=== PATIENT | male | born 1945 | race Caucasian/White ===

== ENCOUNTER 2018-10-12 19:07 | Inpatient (IN) | payer MEDICARE ==
[2018-10-12 19:59] LABS: INR-International Normal Ratio 1.2; Prothrombin Time 15.3 SEC (12.0-14.7)
[2018-10-12 20:00] LABS: PTT 34.3 SEC (22.9-36.1)
[2018-10-12 20:08] LABS: Anion Gap 20 mmol/L (10-20); BUN (Urea Nitrogen) 39 mg/dL (8.4-25.7); Calc. Creatinine Clearance 0 mL/min (70-130); Calcium 9.4 mg/dL (7.8-10.44); Carbon Dioxide 27 mmol/L (23-31); Chloride 96 mmol/L (98-107); Estimated GFR-MDRD 7; Glucose 79 mg/dL (83-110); Sodium 138 mmol/L (136-145)
[2018-10-12] MEDS ORDERED: Calcium Carbonate 500 MG ChewTAB PO PRN (20:10)
[2018-10-12] MEDS ORDERED: Senokot S 8.6-50 MG TAB PO PRN (20:10)
--- NOTE | 2018-10-12 21:50 | HP ---
Greg Sosa dictating for Dr. Pipe Smith. This is a 30-minute initial patient evaluation in with greater than 50% of the exam spent in counseli ng and coordinating patient's care. Remainder of the exam was spent in review of medical records and appropriate imaging studies. CHIEF COMPLAINT: Status post fall with left subdural hematoma. HISTORY OF PRESENT ILLNESS: Mr. Oliveros is a pleasant 73-year-old male who presents as a transfer from [facility] with the above complaints. Apparently, the patient sustained a fall ye sterday of which exact events are unclear to him. He states he does not remember striking his head o r his neck. He is on 81 mg aspirin, although he states he does not know why. He has end-stage renal disease and is on peritoneal dialysis. He has no known cardiac disease, stents or history of cerebr ovascular accident. Review of patient's head CT from [facility] shows a left subdu ral hematoma collection with a roughly 2 mm midline shift, slight amount of mass effect. There does not appear to be any hydrocephalus. The patient is not complaining of neck or headache at this time. The patient does note, however, a fall roughly 3 weeks ago as he does have some balance difficultie s and states he did fall into his neck. However, at this time, he does not complain of any neck pain . PHYSICAL EXAMINATION: The patient is awake, alert, and appropriate. GCS currently is 15. He follow s commands equally in all 4 extremities. He does have erythema in the left lower extremity consisten t with a probable cellulitis. He has missing a toenail on the right. He otherwise has no pronator d rift. He has no dysmetria. He states he is legally blind, but appears to have decent vision on conf rontation testing. He also is able to correctly identify a pen and state its purpose. His pupils ar e equal, round, and reactive bilaterally. Patient has no worrisome tenderness to palpation in the ce rvical spine. DIAGNOSIS: Status post fall with left subdural hematoma with minimal midline shift. PLAN: I have discussed the patient's case and imaging with Dr. Smith. At this time, the patient is neurologically intact. Therefore, he does not require neurosurgical intervention, but we will watch him very closely in the ICU. Hospitalist team will be involved in regards to the patient's end-stag e renal disease as well as cellulitis. He has got some antibiotics in the emergency room. Would lik e every one hour neuro checks if systolic blood pressure remains less than 150. We will hold his asp irin. Head of bed will be elevated at 30 degrees. He may eat now, but I would like to make him n.p. o. at midnight. Please call with any changes in patient's neurologic status. Otherwise, he does not require neurosurgical intervention at this time as he is neurologically stable.
[2018-10-12 23:29] VITALS: BMI 33.7
[2018-10-13] MEDS ORDERED: [UNRECOGNIZED DRUG - REMARK] FS SCH (00:30)
[2018-10-13] MEDS: Sodium Chloride 0.9% 1,000 ML IV SCH ×2 (02:09→20:44)
[2018-10-13] MEDS ORDERED: Doxycycline 100 MG CAP PO SCH (12:00)
--- NOTE | 2018-10-13 15:38 | PDOC.PN ---
- Subjective Encounter Start Date: 10/13/18 Encounter Start Time: 11:00 Pt seen for management of medical comorbidities including hypertension. - Objective Resuscitation Status: Resuscitation Status FULL:Full Resuscitation Vital Signs & Weight: Vital Signs (12 hours) Temp Pulse Pulse Pulse Resp BP BP 10/13/18 14:49 97.9 F 70 16 10/13/18 13:40 71 73 147/67 H 124/56 L 10/13/18 08:00 98.0 F 10/13/18 04:00 98.8 F BP Pulse Ox Pulse Ox Pulse Ox 10/13/18 14:49 135/73 100 10/13/18 13:40 100 100 10/13/18 08:00 98 10/13/18 04:00 Weight Weight 235 lb 3.732 oz Most Recent Monitor Data Heart Rate from ECG 69 NIBP 147/67 NIBP BP-Mean 93 Respiration from ECG 21 SpO2 100 I&O: 10/12/18 10/13/18 10/14/18 06:59 06:59 06:59 Intake Total 65.5 Output Total 0 Balance 65.5 Result Diagrams: 10/12/18 19:42 Additional Labs: Accuchecks 10/13/18 10/12/18 11:34 19:24 POC Glucose 93 72 Phys Exam - Physical Examination Obese HEENT: moist MMs Neck: supple Respiratory: clear to auscultation bilateral Cardiovascular: RRR Gastrointestinal: soft Neurological: moves all 4 limbs Psychiatric: normal affect Deviation from normal: erythema over left knee Dx/Plan (1) HTN (hypertension) Code(s): I10 - ESSENTIAL (PRIMARY) HYPERTENSION Status: Chronic Comment: blood pressure is controlled. (2) Dyslipidemia Code(s): E78.5 - HYPERLIPIDEMIA, UNSPECIFIED Status: Chronic Comment: continue statin - Plan * . Unclear whether the lesion on left knee is cellulitis or bruise. Pt does not know if he fell on the knee. Will start empiric antibiotics. Review of Systems - Review of Systems Cardiovascular: negative: chest pain, palpitations, orthopnea, paroxysmal nocturnal dyspnea, edema, light headedness Gastrointestinal: negative: Nausea, Vomiting, Abdominal Pain, Diarrhea, Constipation, Melena, Hematochezia - Medications/Allergies Allergies/Adverse Reactions: Allergies Allergy/AdvReac Type Severity Reaction Status Date / Time No Known Allergies Allergy Unverified 10/12/18 20:31 Medications: Current Medications Acetaminophen (Tylenol) 650 mg PO Q4H PRN PRN Reason: Headache/Fever/Mild Pain (1-3) Calcium Carbonate (Tums) 1,000 mg PO Q4H PRN PRN Reason: Heartburn or Indigestion Doxycycline Hyclate (Vibramycin) 100 mg PO BID KRISTEN Sodium Chloride (Normal Saline 0.9%) 1,000 mls @ 30 mls/hr IV .Q24H [facility] Last Admin: 10/13/18 02:09 Dose: 1,000 mls Labetalol HCl (Normodyne) 10 mg SLOW IVP Q10MIN PRN PRN Reason: SBP GREATER THAN 160 Hold All Aspirin/ (Blood Thinners) 1 each FS ONE [facility] Stop: 10/27/18 00:31 Ondansetron HCl (Zofran) 4 mg IVP Q6H PRN PRN Reason: Nausea/Vomiting Senna/Docusate Sodium (Senokot S) 2 tab PO BIDPRN PRN PRN Reason: Constipation Sodium Chloride (Flush - Normal Saline) 10 ml IVF PRN PRN PRN Reason: Saline Flush
--- NOTE | 2018-10-13 16:10 | CT ---
PRELIMINARY REPORT/[facility]/EMERGENTY AFTER-HOURS PROCEDURE Addendum created by Baldomero Richter MD on 10/13/2018 6:48 AM Central Time ([place] & [place]) THIS REPORT CONT AINS FINDINGS THAT MAY BE CRITICAL TO PATIENT CARE. The findings were verbally communicated via telep henna conference with YAHAIRA NICK at 6:48 AM ASSOCIATE PROFESSOR OF MUSIC on 10/13/2018. The findings were acknowledged and understood. Addendum created by Baldomero Richter MD on 10/13/2018 6:23 AM Central Time ([place] & [place]) As per technologist, comparison images are at an outside facility and are not available. Initial Report created on 10/13/2018 6:03 AM Central Time ([place] & [place]) CT Head Without Intravenous Contrast EXAM DATE/TIME: 10/13/2018 4:55 AM CLINICAL HISTORY: 73 years old, male; Signs and symptoms; Altered mental status/memory loss; Confusion or disorientatio n; Patient HX: L sdh, fell couple days ago, AMS TECHNIQUE: Axial computed tomography images of the head/brain without intravenous contrast. COMPARISON: No relevant prior studies available. FINDINGS: Brain: There is a LEFT frontoparietal convexity acute subdural hematoma measuring approximately 11 x 1.5 cm. Midline shift: There is no significant midline shift. Ventricles: Normal. No ventriculomegaly. Bones/joints: Normal. No acute fracture. Sinuses: Normal as visualized. No acute sinusitis. Mastoid air cells: Normal as visualized. No mastoid effusion. Soft tissues: Normal. IMPRESSION: There is a LEFT frontoparietal convexity acute subdural hematoma measuring approximately 11 x 1.5 cm. Comparison with prior imaging (not currently available) is advised. Thank you for allowing us to participate in the care of your patient. Dictated and Authenticated by: Baldomero Richter MD 10/13/2018 6:03 AM Central Time ([place] & [place]) FINAL REPORT BRAIN CT WITHOUT IV CONTRAST: EMERGENT AFTER HOURS EXAM TIME: 4:56 a.m. DATE: 10/13/2018. FINDINGS: Large left frontal and temporal subdural hematoma. There appears to be a probable very slight, 1-2 m m midline shift to the right. No evidence for other acute intraparenchymal process. Sinuses and mas toids are clear. IMPRESSION: Agree with [facility]. POS: [facility]
--- NOTE | 2018-10-13 17:42 | PRG ---
DATE OF SERVICE: 10/13/2018 This is a 30-minute initial hospital visit note in which 30 minutes were spent in review of the imagi ng record, evaluation and examination of patient, and formulation of plan. Greater than 50% of the t yaritza was spent in counseling on Mr. Lalit Oliveros. Mr. Oliveros is a very pleasant 73-year-old gentleman, admitted with baseline visual deficits otherwise has been neurologically intact. He was found to have a left-sided just over 1 cm acute subdural kimber chey with mild mass effect and midline shift. The patient does have end-stage renal failure and is o n renal dialysis. He was noted to have had a fall couple weeks ago and then another fall recently. Obviously, I suspect the left-sided acute subdural hematoma is related. It is stable on repeat head CT. I have discussed his care with our nephrology colleagues and we will [facility] the [facility] 2[facility]4 weeks with a repeat head CT. Should he develop any evidence of a persisten ce of the subdural hematoma as on occasion these can liquefy, we will plan for potential melody hole ev acuation, although obviously at this point, he is neurologically intact and it is not necessary to pu rsue that given his clinical excellence.
[2018-10-13] MEDS ORDERED: Dextrose 50% Abboject 50 ML SYRINGE IVP PRN (17:48)
[2018-10-13] MEDS ORDERED: Dextrose 5% in Water 1,000 ML IV PRN (17:48)
[2018-10-13] MEDS: HumaLOG 300 UNITS/3 ML VIAL SC PRN (18:12)
--- NOTE | 2018-10-13 20:32 | CON ---
DATE OF CONSULTATION: 10/13/2018 REASON FOR CONSULTATION: End-stage renal disease, on maintenance hemodialysis. HISTORY OF PRESENT ILLNESS: This is a very pleasant 73-year-old gentleman who presented for possible subdural hematoma. The patient did have dialysis Sunday, , and Sunday and had dial ysis yesterday. The patient denied no headache, numbness, tingling or weakness. Denies any nausea, vomiting or chest pain. The patient has a left subdural hematoma for which has been evaluated at thi s time. PAST MEDICAL HISTORY: Significant for end-stage renal disease, diabetes mellitus, hypertension, foot ulcers, carotid plaque, history of CABG, cholecystectomy, AV fistula, tunneled dialysis catheter. SOCIAL HISTORY: No alcohol. FAMILY HISTORY: Negative ESRD. ALLERGIES: Reviewed. HOME MEDICATIONS: List reviewed. REVIEW OF SYSTEMS: A 15-point review of systems was performed and negative except positives noted ab ove. General: Weakness- Head: Headache- Neck: No swelling or lumps. Nose: No epistaxis or dis charge. Eyes: No diplopia or pain. Respiratory: Dyspnea- Cardiovascular: Chest pain- Gastrointe stinal: Nausea- /BEHAVIORAL SCIENTIST: Hematuria- Musculoskeletal: No joint pain. Neuropsychiatic Systems: No s uicidal ideation. No ideation. Skin: Denies any rash or ulcer. Constitutional: No fever or chill s. PHYSICAL EXAMINATION: GENERAL: Patient is awake, alert. VITAL SIGNS: Afebrile, pulse 68, breathing 16, blood pressure . OBJECTIVE: See above. Awake, alert, in no acute distress. GENERAL APPEARANCE AND MENTAL STATUS: Fair. HEAD/NECK: Normocephalic. Atraumatic. EYES: EOMI. No deformity. EARS: Clear. No ulcers. NOSE: Intact. No lesions. MOUTH: Clear. No discharge. THROAT: Clear. No exudate. LUNGS: Clear. No crackles. CARDIAC: S1, S2. No rub. ABDOMEN: Benign. BS+. GENITALIA/RECTUM: Werner absent. BACK/EXTREMITIES: Edema 0+ Ulcer- NEUROLOGICAL: Alert and motor intact. SKIN: Rash- Bruise- LYMPHATICS: Edema- Ulcer- LABORATORY DATA: Potassium was 5.0. ASSESSMENT AND RECOMMENDATIONS: 1. Stage 6 chronic kidney disease. We will plan hemodialysis per schedule. We will recheck labs. 1. Hypertension, stable. 2. Anemia, stable. 3. Medication based on glomerular filtration rate are appropriate.
[2018-10-13] MEDS: Doxycycline 100 MG CAP PO SCH (20:44)
--- NOTE | 2018-10-13 20:57 | CON ---
DATE OF CONSULTATION: 10/13/2018 HISTORY OF PRESENT ILLNESS: Mr. Oliveros is a 73-year-old male. He has undergone coronary artery bypass grafting this year at [facility]. His director of conservation is in [place]. He was transferred from [facility] with parenchymal brain hemorrhage. This is small. He actually is in no distress and he was sitting in his chair at the bedside when I evaluated him. PAST MEDICAL HISTORY: Remarkable for recent coronary bypass grafting. He has never been hospitalized here before. FAMILY HISTORY: Negative for lung disease at an early age. SOCIAL HISTORY: Non contributory. REVIEW OF SYSTEMS: 10 point review of systems completed, otherwise negative. PHYSICAL EXAMINATION: GENERAL: On exam, he has been weaned off Cardene. VITAL SIGNS: Blood pressure 131/60, heart rate 69, respiratory rate is 29. HEENT: Pupils are equal. Sclerae is anicteric. NECK: Supple. LUNGS: Clear. HEART: Regular rhythm. ABDOMEN: Soft and nontender. EXTREMITIES: Without clubbing, cyanosis, or edema. IMPRESSION: Subdural hematoma. It is not anticipated, he will need neurosurgical intervention. Antibiotics were started for some lower extremity erythema. The dialysis patient will be dialyzed while he is in the hospital here. It would not be unreasonable for any transfer out of the Critical Care Unit to the stroke unit for observation. This is a 70 minute consult, with greater than 50% of time spent on unit in coordination of care. MORGNA
[2018-10-13] MEDS ORDERED: rOPINIRole HCl 2 MG TAB PO SCH (21:45)
[2018-10-14 09:23] LABS: Anion Gap 26 mmol/L (10-20); BUN (Urea Nitrogen) 68 mg/dL (8.4-25.7); Calc. Creatinine Clearance 10 mL/min (70-130); Calcium 8.6 mg/dL (7.8-10.44); Carbon Dioxide 20 mmol/L (23-31); Chloride 94 mmol/L (98-107); Estimated GFR-MDRD 5; Glucose 170 mg/dL (83-110); Potassium 5.8 mmol/L (3.5-5.1); Sodium 134 mmol/L (136-145)
[2018-10-14] MEDS: Doxycycline 100 MG CAP PO SCH ×2 (09:37→20:22)
--- NOTE | 2018-10-14 10:39 | PRG ---
Patient Name: DOMINICK BURNS Date of service: 10/14/2018 Subjective: Patient was seen and examined at bedside and overnight events noted. Patient denies any shortness of breath or chest pain or palpitation. No history of nausea or vomiting or diarrhea or fever or chills or cramps. Objective: General: This is a well-built male in no apparent distress. Vital signs: Temperature 98.9, pulse 73, respiratory rate 18, blood pressure 129/66. HEENT: Atraumatic, normocephalic. Oral mucosa is moist. Neck: Supple. Cardiovascular: S1 S2 heard. Rate and rhythm regular. Respiratory: Clear to auscultation. Gastrointestinal: Abdomen is soft. Musculoskeletal: No tenderness. No edema. Dermatologic: No skin rash. Neurologic: Alert and awake and oriented X3. No focal neurologic deficits. Moving all the extremities. Psychiatric: Mood and affect normal. LABORATORY DATA: Potassium is 5.8, BUN 68, creatinine is 10.5. ASSESSMENT AND PLAN: 1. End-stage renal disease. We will plan for 2 hours of dialysis. 2. Hyperkalemia. Limit potassium intake. 3. Anemia 4. Metabolic acidosis. 5. Hypertension, stable. 6. Edema. Plan is to have 2 hours of hemodialysis today and then continue dialysis Sunday , , and Sunday. Limit potassium intake. We will follow. MTDD
[2018-10-14] MEDS: HumaLOG 300 UNITS/3 ML VIAL SC PRN (13:23)
--- NOTE | 2018-10-14 14:37 | PDOC.PN ---
- Subjective Encounter Start Date: 10/14/18 Encounter Start Time: 07:00 Pt seen for followup re: cellulitis. Appears confused, slow to respond to questions. - Objective Resuscitation Status: Resuscitation Status FULL:Full Resuscitation Vital Signs & Weight: Vital Signs (12 hours) Temp Pulse Pulse Pulse Resp BP BP 10/14/18 13:31 10/14/18 11:54 99.1 F 74 20 10/14/18 09:33 10/14/18 08:47 80 81 121/49 L 156/77 H 10/14/18 08:00 10/14/18 07:38 99.9 F H 73 18 10/14/18 04:00 98.6 F 85 20 BP Pulse Ox 10/14/18 13:31 118/64 10/14/18 11:54 168/77 H 97 10/14/18 09:33 129/66 10/14/18 08:47 10/14/18 08:00 98 10/14/18 07:38 168/87 H 98 10/14/18 04:00 137/62 93 L Weight Weight 235 lb 3.732 oz Most Recent Monitor Data Heart Rate from ECG 69 NIBP 147/67 NIBP BP-Mean 93 Respiration from ECG 21 SpO2 100 I&O: 10/13/18 10/14/18 10/15/18 06:59 06:59 06:59 Intake Total 65.5 240 Output Total 0 Balance 65.5 240 Result Diagrams: 10/14/18 08:50 Additional Labs: Accuchecks 10/14/18 10/13/18 10/13/18 05:35 20:42 17:14 POC Glucose 107 135 H 163 H Phys Exam - Physical Examination HEENT: moist MMs Neck: supple Respiratory: clear to auscultation bilateral Cardiovascular: RRR Gastrointestinal: soft Neurological: moves all 4 limbs Psychiatric: normal affect Deviation from normal: left knee cellulitis Dx/Plan (1) Cellulitis Code(s): L03.90 - CELLULITIS, UNSPECIFIED Status: Acute Comment: continue doxycycline (2) Acute encephalopathy Code(s): G93.40 - ENCEPHALOPATHY, UNSPECIFIED Status: Acute Comment: repeat CT brain to evaluate (3) HTN (hypertension) Code(s): I10 - ESSENTIAL (PRIMARY) HYPERTENSION Status: Chronic Comment: blood pressure is controlled. (4) Dyslipidemia Code(s): E78.5 - HYPERLIPIDEMIA, UNSPECIFIED Status: Chronic Comment: continue statin - Plan * . Review of Systems - Review of Systems Cardiovascular: negative: chest pain, palpitations, orthopnea, paroxysmal nocturnal dyspnea, edema, light headedness Gastrointestinal: negative: Nausea, Vomiting, Abdominal Pain, Diarrhea, Constipation, Melena, Hematochezia - Medications/Allergies Allergies/Adverse Reactions: Allergies Allergy/AdvReac Type Severity Reaction Status Date / Time No Known Allergies Allergy Unverified 10/12/18 20:31 Medications: Current Medications Acetaminophen (Tylenol) 650 mg PO Q4H PRN PRN Reason: Headache/Fever/Mild Pain (1-3) Calcium Carbonate (Tums) 1,000 mg PO Q4H PRN PRN Reason: Heartburn or Indigestion Dextrose/Water (Dextrose 50%) 25 gm IVP PRN PRN PRN Reason: HYPOGLYCEMIA PROTOCOL Doxycycline Hyclate (Vibramycin) 100 mg PO BID [facility] Last Admin: 10/14/18 09:37 Dose: 100 mg Glucagon (Glucagon) 1 mg IM PRN PRN PRN Reason: HYPOGLYCEMIA PROTOCOL Sodium Chloride (Normal Saline 0.9%) 1,000 mls @ 30 mls/hr IV .Q24H [facility] Last Admin: 10/13/18 20:44 Dose: 1,000 mls Dextrose/Water (D5w) 1,000 mls @ 0 mls/hr IV INF PRN PRN Reason: HYPOGLYCEMIA PROTOCOL Insulin Human Lispro (Humalog) 0 units SC .MILD SLIDING SCALE PRN; Protocol PRN Reason: MILD SLIDING SCALE Last Admin: 10/14/18 13:23 Dose: 2 unit Labetalol HCl (Normodyne) 10 mg SLOW IVP Q10MIN PRN PRN Reason: SBP GREATER THAN 160 Hold All Aspirin/ (Blood Thinners) 1 each FS ONE [facility] Stop: 10/27/18 00:31 Ondansetron HCl (Zofran) 4 mg IVP Q6H PRN PRN Reason: Nausea/Vomiting Ropinirole HCl (Requip) 2 mg PO HS [facility] Senna/Docusate Sodium (Senokot S) 2 tab PO BIDPRN PRN PRN Reason: Constipation Sodium Chloride (Flush - Normal Saline) 10 ml IVF PRN PRN PRN Reason: Saline Flush
--- NOTE | 2018-10-14 15:20 | CT ---
HEAD CT WITHOUT CONTRAST: HISTORY: New-onset confusion. Followup hematoma. COMPARISON: 10/13/2018. FINDINGS: Calvarium is intact. Adequate aeration of the sinuses and mastoid air cells. Cavernous carotid athe rosclerosis is noted. Redemonstration of a left frontal, temporal, and parietal subdural hematoma. Minimal interval increa se in size of the diameter approximately 1.4 cm at the level of the sylvian fissure. There is persis tent mass effect upon the left cerebrum. There is evidence of sulcal effacement. No significant mid line shift. Basilar cisterns are patent. There is persistent preservation of cortical pulido-white ma tter differentiation in the right cerebrum. IMPRESSION: 1. Minimal increase in size of a left-sided subdural hematoma. 2. No significant midline shift. POS: [facility]
--- NOTE | 2018-10-14 15:22 | PQF ---
I do not have this patient at this time. Sorry I was away last threee days. DOMINICK BURNS DAVID [id number] [facility]-A09 [id number] CLINICAL DOCUMENTATION IMPROVEMENT CLARIFICATION FORM: ICD-10 Updated PLEASE DO AN ADDENDUM TO THE PROGRESS NOTE WITH ANY DOCUMENTATION UPDATES OR ADDITIONS AND CARRY THROUGH TO DC SUMMARY. THANK YOU. DATE: 10-14-18 ATTN: DR. SANDERSON Please exercise your independent, professional judgment in responding to the clarification form. Clinical indicators are provided on the bottom of this form for your review Please check appropriate box(s): [ ] Encephalopathy: Type: [ ] Acute [ ] Subacute [ ] Chronic Etiology: [ ] Hypertensive [ ] Metabolic [ ] Unspecified [ ] Other (please specify) [ ] Transient Alteration of Awareness [ ] Other diagnosis [ ] Unable to determine In addition, please specify: Present on Admission (POA): [ ] Yes [ ] No [ ] Unable to determine For continuity of documentation, please document condition throughout progress notes and discharge summary. Thank You. CLINICAL INDICATORS - SIGNS / SYMPTOMS / LABS 10-14 (MARIA E): * APPEARS CONFUSED - SLOW TO RESPOND TO QUESTIONS * ACUTE ENCEPHALOPATHY - REPEAT CT BRAIN TO EVALUATE 10-14 (JAMSHID): METABOLIC ACIDOSIS; ESRD RISK FACTORS: 10-12 (PARK) * LEFT SUBDURAL HEMATOMA W/ MIDLINE SHIFT * AWAKE/ALERT AND APPROPRIATE - GCS CURRENTLY 15 10-14 (MARIA E): * HTN - BLD PRESSURE IS CONTROLLED * LLE CELLULITIS - CONTINUE DOXYCYCLINE TREATMENTS: 10-[address] BRAIN MAR: IVF - NS 10-12 DOXYCYCLINE PO 10-13 THANK YOU, ZURI (This form is maintained as a part of the permanent medical record) 2015 [employer]. All Rights Reserved Zuri Cano RN, BS [email or web address] Cell [facility] HOSPITALChelsey
--- NOTE | 2018-10-14 15:41 | PQF ---
DOMINICK BURNS MORGAN, PA-C [id number] CLINICAL DOCUMENTATION IMPROVEMENT CLARIFICATION FORM: ICD-10 Updated PLEASE DO AN ADDENDUM TO THE PROGRESS NOTE WITH ANY DOCUMENTATION UPDATES OR ADDITIONS AND CARRY THROUGH TO DC SUMMARY. THANK YOU. DATE: 10-14-18 ATTN: YAHAIRA NICK PA-C Please exercise your independent, professional judgment in responding to the clarification form. Clinical indicators are provided on the bottom of this form for your review Please check appropriate box(s): [ ] Cerebral edema / Vasogenic edema [ ] Compression of brain [ ] Other diagnosis [ ] Unable to determine In addition, please specify: Present on Admission (POA): [ ] Yes [ ] No [ ] Unable to determine For continuity of documentation, please document condition throughout progress notes and discharge summary. Thank You. CLINICAL INDICATORS - SIGNS / SYMPTOMS / LABS H&P (PARK): * CT FROM [facility] SHOWS A LEFT SUBDURAL HEMATOMA COLLECTION W/ ROUGHLY 2MM MIDLINE SHIFT, SLIGHT AMOUNT OF MASS EFFECT * LEFT SUBDURAL HEMATOMA W/ MINIMAL MIDLINE SHIFT 10-13 CT BRAIN: LARGE LEFT FRONTAL AND TEMPORAL SUBDURAL HEMATOMA. VERY SLIGHT 1-2 mm MIDLINE SHIFT TO RIGHT. 10-14 (MARIA E): APPEARS CONFUSED - ACUTE ENCEPHALOPATHY - WILL REPEAT CT OF BRAIN RISK FACTORS 10-12 (PARK) * S/P FALL W/ LEFT SUBDURAL HEMATOMA W/ MINIMAL MIDLINE SHIFT 10-13 (MARIA E) * HX HTN TREATMENTS: CPOE: CT BRAIN 10-12 - NEURO CHECKS MAR: IVF NS 10-12 DOXYCYCLINE PO 10-13 THANK YOU, ZURI (This form is maintained as a part of the permanent medical record) 2015 [employer]. All Rights Reserved Zuri Cano RN, BS [email or web address] Cell [facility]
[2018-10-14] MEDS: rOPINIRole HCl 2 MG TAB PO SCH (20:22)
[2018-10-14] MEDS: Sodium Chloride 0.9% 1,000 ML IV SCH (20:33)
[2018-10-14] MEDS: Acetaminophen 325 MG TAB PO PRN (20:44)
[2018-10-14] MEDS: Labetalol HCl 100 MG/20 ML VIAL SLOW IVP PRN (20:45)
[2018-10-15] MEDS: Labetalol HCl 100 MG/20 ML VIAL SLOW IVP PRN (00:16)
--- NOTE | 2018-10-15 10:03 | PRG ---
Patient Name: DOMINICK BURNS Date of service: 10/15/2018 Subjective: Patient was seen and examined at bedside and overnight events noted. Patient denies any shortness of breath or chest pain or palpitation. No history of nausea or vomiting or diarrhea or fever or chills or cramps. Objective: General: This is a well-built male in no apparent distress. Vital signs: Temperature 97.6, pulse 73, respiratory rate 18, blood pressure 134/64. HEENT: Atraumatic, normocephalic. Oral mucosa is moist. Neck: Supple. Cardiovascular: S1 S2 heard. Rate and rhythm regular. Respiratory: Clear to auscultation. Gastrointestinal: Abdomen is soft. Musculoskeletal: No tenderness. No edema. Dermatologic: No skin rash. Neurologic: Alert and awake and oriented X3. No focal neurologic deficits. Moving all the extremit ies. Psychiatric: Mood and affect normal. LABORATORY DATA: Not done today. ASSESSMENT AND PLAN: 1. End-stage renal disease, have dialysis. 2. Hyperkalemia. Limit potassium intake. Will have dialysis. 3. Metabolic acidosis. 4. Hypertension. 5. Anemia. 6. Edema. Plan is to continue on dialysis as tolerated Sunday, and Sunday.
[2018-10-15 13:35] LABS: #Lymphocytes 1.3 thou/uL (1.20-3.40); #Monocytes 0.8 thou/uL (0.11-0.59); #Neutrophils 8.9 thou/uL (1.40-6.50); %Basophils 0.1 % (0.0-1.0); %Eosinophils 0.4 % (0.0-10.0); %Lymphocytes 12.2 % (21.0-51.0); %Monocytes 6.8 % (0.0-10.0); %Neutrophils 80.5 % (42.0-75.0); Hemoglobin 12.2 g/dL (14.0-18.0); Mean Corpuscular HGB CONC 32.4 g/dL (32.0-36.0); Mean Corpuscular Hemoglobin 31.4 pg (27.0-31.0); Mean Corpuscular Volume 96.8 fL (78.0-98.0); Mean Platelet Volume 6.8 fL (7.4-10.4); Platelet Count 243 thou/uL (130-400); RBC Distribution Width 17.5 % (11.5-14.5)
[2018-10-15 14:00] LABS: ALT (SGPT) 16 U/L (8-55); AST (SGOT) 20 U/L (5-34); Albumin 3.6 g/dL (3.4-4.8); Alkaline Phosphatase 138 U/L (40-150); Anion Gap 18 mmol/L (10-20); BUN (Urea Nitrogen) 18 mg/dL (8.4-25.7); Bilirubin, Total 1.7 mg/dL (0.2-1.2); Calc. Creatinine Clearance 26 mL/min (70-130); Calcium 9.3 mg/dL (7.8-10.44); Carbon Dioxide 27 mmol/L (23-31); Chloride 95 mmol/L (98-107); Estimated GFR-MDRD 15; Globulin 4.1 g/dL (2.4-3.5); Glucose 120 mg/dL (83-110); Potassium 3.5 mmol/L (3.5-5.1); Protein, Total 7.7 g/dL (5.8-8.1); Sodium 136 mmol/L (136-145)
[2018-10-15] MEDS: Doxycycline 100 MG CAP PO SCH ×2 (14:00→22:11)
--- NOTE | 2018-10-15 14:39 | PDOC.PN ---
- Subjective Encounter Start Date: 10/15/18 Encounter Start Time: 14:37 Moans and grimaces frequently, but says he is not having any pain. - Objective Resuscitation Status: 10/15/18 12:07 Resuscitation Status Routine Resuscitation Status: FULL: Full Resuscitation Discussed with: Per Previous order Vital Signs & Weight: Vital Signs (12 hours) Temp Pulse Resp BP Pulse Ox 10/15/18 08:05 94 L 10/15/18 08:00 97.6 F 76 18 134/64 94 L 10/15/18 05:12 99.1 F 68 18 149/71 H 97 Weight Admit Weight 235 lb 3.732 oz Weight 235 lb 3.732 oz Most Recent Monitor Data Heart Rate from ECG 69 NIBP 147/67 NIBP BP-Mean 93 Respiration from ECG 21 SpO2 100 I&O: 10/14/18 10/15/18 10/16/18 06:59 06:59 06:59 Intake Total 818 Output Total 1500 Balance -682 Result Diagrams: 10/15/18 13:21 10/15/18 13:21 Additional Labs: Accuchecks 10/15/18 10/14/18 10/14/18 05:24 23:18 18:46 POC Glucose 100 147 H 122 H 10/14/18 11:03 POC Glucose 194 H Phys Exam - Physical Examination Looks to be in pain at times, but denies. Respiratory: no wheezing, no rales, no rhonchi Cardiovascular: RRR, no significant murmur Gastrointestinal: soft, non-tender, no distention Musculoskeletal: no edema Neurological: non-focal Deviation from normal: Encephalopathic. Dx/Plan (1) Contusion of left knee Code(s): S80.02XA - CONTUSION OF LEFT KNEE, INITIAL ENCOUNTER Status: Acute (2) Acute encephalopathy Code(s): G93.40 - ENCEPHALOPATHY, UNSPECIFIED Status: Acute Comment: repeat CT brain to evaluate (3) Dyslipidemia Code(s): E78.5 - HYPERLIPIDEMIA, UNSPECIFIED Status: Chronic Comment: continue statin (4) HTN (hypertension) Code(s): I10 - ESSENTIAL (PRIMARY) HYPERTENSION Status: Chronic Comment: blood pressure is controlled. (5) Subdural hematoma Code(s): S06.5X9A - TRAUM SUBDR HEM W LOC OF UNSP DURATION, INIT Status: Acute - Plan * No surgical intervention intended by neurosurg. * Left knee definitely appears to be contusion with bruising and not cellulitis. * Encephalpathy is persistent. Etiology unclear. Mild leukocytosis. Awaiting CXR and UA results. Consult Neurology.
--- NOTE | 2018-10-15 18:49 | RAD ---
FRONTAL VIEW CHEST: Indication: Encephalopathy. FINDINGS: Cardiac silhouette is enlarged with pulmonary vascular prominence. There are patchy alveolar opacitie s and interstitial prominence of each lung. Prior sternotomy noted. There is extensive artifact limit ing detail. IMPRESSION: Findings most consistent with decompensated CHF. Correlate clinically, and if necessary, imaging foll ow up may be obtained. POS: [facility]
--- NOTE | 2018-10-15 20:19 | CT ---
HEAD CT WITHOUT CONTRAST: 10/15/18 COMPARISON: 10/14/18 HISTORY: Re-evaluate hematoma, encephalopathy. TECHNIQUE: Axial CT imaging at 5 mm intervals from vertex through skull base without contrast. FINDINGS: Imaged paranasal sinuses/mastoid air cells well aerated. No displaced calvarial fracture is evident. There is a subdural hematoma on the left. This left subdural hematoma measures up to 1.4 cm in transv erse dimension in the left frontal region, stable. There is a component along the anterior and latera l aspect of the middle cranial fossa on the left, which is stable. There are posterior components in the left parietal and occipital regions, which appear stable as well. Left to right midline shift at the level of the septum pellucidum is minimal, measuring in the 2 mm r dinesh. No new hemorrhage. IMPRESSION: Grossly unchanged hemispheric left subdural hematoma with minimal left to right midline shift measuri ng in the 2 mm range. POS: [facility]
--- NOTE | 2018-10-15 21:37 | CON ---
DATE OF CONSULTATION: 10/15/2018 CONSULTING PHYSICIAN: Hospitalist Service. IMPRESSION: Apparent acute neurologic change what appears to be receptive aphasia. His exam is otherwise nonfocal. His EGD did not show any ongoing subclinical seizure activity. PLAN: 1. Ammonia level, cortisol level, and T4. 2. Repeat CT scan of the brain. HISTORY OF PRESENT ILLNESS: Mr. Oliveros is a 73-year-old gentleman, who was admitted after discovery of subdural hematoma. He was seen by Neurosurgery yesterday and reportedly was intact. He had about a 1 cm fairly extensive left hemispheric subdural hematoma, which appeared to be acute. They did not feel it was necessary to operate on at that point. Apparently, he has become a bit more agitated and not able to communicate in appropriate fashion. His vital signs have been stable and he has been in afebrile. PAST MEDICAL HISTORY: Otherwise only notable for some recent head trauma and renal failure requiring hemodialysis. ALLERGIES: NONE REPORTED. SOCIAL HISTORY: Unknown. FAMILY HISTORY: Unknown. REVIEW OF SYSTEMS: Not obtainable due to his inability to communicate effectively. PHYSICAL EXAMINATION: GENERAL: He is a well-nourished elderly man, lying in bed, in no acute distress. VITAL SIGNS: Stable. He is afebrile. HEENT: Pupils are equal and reactive. Conjunctivae clear. Oropharynx clear. NECK: Supple. EXTREMITIES: No cyanosis, clubbing, or edema. NEUROLOGIC: Appeared to be awake, but just continually repeated "I don't know," could not get him to follow commands in an appropriate fashion except when prompted by physical cueing. His cranial nerve exam did not show any asymmetry. Motor exam showed good antigravity strength bilaterally. There was no asterixis present. Gait was not tested. Sensation was symmetric to touch. Plantar response was downgoing on the left and equivocal on the right. SUMMARY: Elderly gentleman who has a large subdural hematoma on the left. 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 It does not appear to be secondary to subclinical seizures. Suspect that it is related to the subdural hematoma causing irritability of the left brain. Neurosurgery may need to be called back for reassessment. Job ID: [id number]
[2018-10-15] MEDS: Acetaminophen 325 MG TAB PO PRN (22:11)
[2018-10-15] MEDS: rOPINIRole HCl 2 MG TAB PO SCH (22:11)
[2018-10-15] MEDS: Lorazepam 2 MG/ML VIAL SLOW IVP PRN (23:09)
[2018-10-15 23:10] LABS: Bilirubin Negative (Negative); Blood, Urine Trace (Negative); Clarity CLEAR (Clear); Glucose, Urine (Dipstick) 100 mg/dL (Negative); Leukocyte Negative (Negative); Nitrite Negative (Negative); Protein, Urine (Dipstick) 300 mg/dL (Neg-Trace); Specific Gravity, Urine 1.014 (1.002-1.036); Urobilinogen 0.2 mg/dL (0.2-1.0); pH, Urine 8.5 (5.0-9.0)
[2018-10-15 23:13] LABS: Bacteria/HPF None Seen HPF (None Seen); Hyaline Casts/LPF 0-3 HYALINE CAST LPF (0-3 Hyaline); RBC/HPF 0-3 HPF (0-3); Squamous Epithelial None Seen HPF (0-3); WBC/HPF 0-3 HPF (0-3)
[2018-10-16] MEDS: Ondansetron PF 4 MG/2 ML Vial IVP PRN (01:49)
[2018-10-16 06:22] LABS: #Eosinphils 0.1 thou/uL (0.0-0.7); #Lymphocytes 1.8 thou/uL (1.20-3.40); #Monocytes 0.9 thou/uL (0.11-0.59); #Neutrophils 5.7 thou/uL (1.40-6.50); %Basophils 0.3 % (0.0-1.0); %Eosinophils 1.1 % (0.0-10.0); %Lymphocytes 21.1 % (21.0-51.0); %Monocytes 10.5 % (0.0-10.0); Hemoglobin 11.8 g/dL (14.0-18.0); Mean Corpuscular HGB CONC 31.5 g/dL (32.0-36.0); Mean Corpuscular Hemoglobin 31.2 pg (27.0-31.0); Mean Corpuscular Volume 99.2 fL (78.0-98.0); Platelet Count 240 thou/uL (130-400); RBC Distribution Width 17.5 % (11.5-14.5); Red Blood Cell (RBC) Count 3.76 mill/uL (4.70-6.10); White Blood Cell (WBC) Count 8.5 thou/uL (4.8-10.8)
[2018-10-16 06:33] LABS: Anion Gap 18 mmol/L (10-20); BUN (Urea Nitrogen) 36 mg/dL (8.4-25.7); Calc. Creatinine Clearance 16 mL/min (70-130); Carbon Dioxide 27 mmol/L (23-31); Chloride 96 mmol/L (98-107); Estimated GFR-MDRD 8; Glucose 99 mg/dL (83-110); Potassium 4.4 mmol/L (3.5-5.1); Sodium 137 mmol/L (136-145)
[2018-10-16] MEDS: Acetaminophen 325 MG TAB PO PRN (11:35)
[2018-10-16] MEDS: Doxycycline 100 MG CAP PO SCH ×2 (11:35→20:16)
--- NOTE | 2018-10-16 11:42 | PRG ---
DATE OF SERVICE: 10/16/2018 DICTATED FOR: Pipe Smith MD This is a 10-minute subsequent patient evaluation in which greater than 50% of the exam was spent counseling and coordinating the patient's care, remainder of the exam was spent in reviewing the patient's medical records and formulation of treatment plan. Mr. Oliveros is now hospital day #4, having sustained acute on chronic left-sided subdural hematoma. The patient is showing signs of metabolic encephalopathy. Repeat head CT was performed yesterday that shows essential stability of the left-sided subdural fluid collection. The patient has end-stage renal disease and is on dialysis. At this time, it does not appear that there is any type of neurosurgical intervention as the patient's head CT is stable. We will continue to monitor him. He does continue with right-sided weakness, but does again appear stable on the last exam Neurosurgery had. Please call with any changes in the patient's neurological status, otherwise be planned to follow up with the patient outpatient in 2 weeks and all blood thinners must be held. Job ID: [id number]
--- NOTE | 2018-10-16 13:15 | PDOC.PN ---
- Subjective Encounter Start Date: 10/16/18 Encounter Start Time: 11:20 No complaints. Cannot remember his name or his 's name. - Objective Resuscitation Status - Order Detail: 10/15/18 12:07 Resuscitation Status Routine Resuscitation Status: FULL: Full Resuscitation Discussed with: Per Previous order Vital Signs & Weight: Vital Signs (12 hours) Temp Pulse Resp BP Pulse Ox 10/16/18 11:35 98.1 F 70 18 140/72 96 10/16/18 08:00 98.2 F 72 18 138/69 97 10/16/18 04:00 98.3 F 69 20 135/59 L 98 Weight Admit Weight 235 lb 3.732 oz Weight 235 lb 3.732 oz Most Recent Monitor Data Heart Rate from ECG 69 NIBP 147/67 NIBP BP-Mean 93 Respiration from ECG 21 SpO2 100 I&O: 10/15/18 10/16/18 10/17/18 06:59 06:59 06:59 Intake Total 818 344 Output Total 1500 2800 Balance -973 -7316 Result Diagrams: 10/16/18 05:36 10/16/18 05:36 Additional Labs: Accuchecks 10/16/18 10/16/18 10/15/18 10:39 06:02 21:04 POC Glucose 125 H 98 154 H 10/15/18 16:38 POC Glucose 114 H Phys Exam - Physical Examination Constitutional: NAD Respiratory: no wheezing, no rales, no rhonchi, clear to auscultation bilateral Cardiovascular: RRR, no significant murmur Gastrointestinal: soft, non-tender, no distention, positive bowel sounds Musculoskeletal: no edema Deviation from normal: Still has some cognitive impairment. Skin: normal turgor Dx/Plan (1) Acute encephalopathy Code(s): G93.40 - ENCEPHALOPATHY, UNSPECIFIED Status: Acute Comment: Repeat brain CT negative for new findings. Neuro eval indicates that the patient has receptive aphasia. Suspect there is an expressive component as well. (2) Contusion of left knee Code(s): S80.02XA - CONTUSION OF LEFT KNEE, INITIAL ENCOUNTER Status: Acute (3) Dyslipidemia Code(s): E78.5 - HYPERLIPIDEMIA, UNSPECIFIED Status: Chronic Comment: continue statin (4) HTN (hypertension) Code(s): I10 - ESSENTIAL (PRIMARY) HYPERTENSION Status: Chronic Comment: blood pressure is controlled. (5) Subdural hematoma Code(s): S06.5X9A - TRAUM SUBDR HEM W LOC OF UNSP DURATION, INIT Status: Acute Comment: Neurosurg has no further plans/eval. (6) ESRD (end stage renal disease) on dialysis Code(s): N18.6 - END STAGE RENAL DISEASE; Z99.2 - DEPENDENCE ON RENAL DIALYSIS Status: Acute - Plan * Patient is stable. He has some cognitive/phasic deficits. * OK for DC planning. May need rehab. * Continue HD per nephrology.
[2018-10-16] MEDS ORDERED: Lorazepam 2 MG/ML VIAL ONE (14:46)
[2018-10-16 14:53] LABS: Actual Bicarbonate (HCO3a) 14.9 mEq/L (22-28); Base Excess (BEa) -13.3 mEq/L (-2.0 to +3.0); Calcium, Ionized 1.18 mmol/L (1.12-1.30); Carboxyhemoglobin (COHb) 1.8 gm% (0.0-3.0); Hemoglobin (Hb) 13.9 g/dL (14.0-18.0); O2 Tension (PaO2) 243.8 mmHg (> 70.0); Potassium - ABG Lab 5.51 mmol/L (3.70-5.30)
[2018-10-16 14:54] LABS: pH, Arterial 7.16 (7.35-7.45)
[2018-10-16 14:55] LABS: Puncture Site RRA
[2018-10-16] MEDS ORDERED: levETIRAcetam In NaCl (Iso-Os) 1,000 MG in Premix Bag 1 BAG IVPB SCH (15:00)
[2018-10-16] MEDS ORDERED: Diltiazem HCl 125 MG, Admixture Fee 1 EACH in Sodium Chloride 0.9% 100 ML IVPB SCH (15:00)
--- NOTE | 2018-10-16 15:47 | RAD ---
PORTABLE CHEST 1 VIEW: Date: 10/16/18 Time: 1538 hours HISTORY: Respiratory failure. FINDINGS/IMPRESSION: Comparison made with exam of 10/15/18. There are changes of median sternotomy. The heart is enlarged. Mild bibasilar infiltrates are noted. No pneumothoraces or large effusions are seen. POS: [facility]
--- NOTE | 2018-10-16 15:59 | CT ---
BRAIN CT WITHOUT IV CONTRAST: HISTORY: A 73-year-old male with a history of seizure, Code Green. COMPARISON: 10/15/2018. FINDINGS: Again noted is a moderate to large left-sided subdural with several millimeters of midline shift to t he right, unchanged from 10/15/2018. No evidence for new hemorrhage. IMPRESSION: Stable left-sided subdural. Minimal midline shift to the right. No new hemorrhage or other new proc ess. Findings were discussed with Dr. Sohrt by phone at 3:15 p.m. CODE LIYA POS: [facility]
[2018-10-16] MEDS: Sodium Chloride 0.9% 1,000 ML IV SCH (17:05)
[2018-10-16] MEDS: HumaLOG 300 UNITS/3 ML VIAL SC PRN (17:08)
[2018-10-16] MEDS: Lorazepam 2 MG/ML VIAL SLOW IVP PRN ×2 (17:10→21:37)
[2018-10-16] MEDS ORDERED: Sodium Bicarb 50 MEQ/50 ML Abboject 8.4% SYRINGE ONE (18:00)
--- NOTE | 2018-10-16 19:26 | PRG ---
DATE OF SERVICE: 10/16/2018 SUBJECTIVE: Responded to a Code Green called on this patient this afternoon. The patient had apparently gotten up and gone into the shower when he had grand mal seizure. The patient was helped to the ground and did not fall. He subsequently was placed in a wheelchair, taken back to bed, then was in the Transition whenever I arrived in the room. The patient was unconscious. He was very tachypneic. He was slightly dusky. His lungs were clear, but he had a lot of upper tracheal rhonchi. He had tachycardia. The patient was subsequently placed on a monitor and heart rate was in the 170s. EKG confirmed atrial fibrillation with the rapid ventricular response. The patient's heart rate varied between 140s to low 200s and he was placed on oxygen and the nasal trumpet was placed. ABG was ordered. The patient had ordered for Cardizem once his blood pressure was established. His blood pressure peaked high as 213 systolic, 110s diastolic. Cardizem 20 mg bolus was ordered. However, before that arrived, the patient had another grand mal seizure. 2 mg of Ativan was given and 1000 mg of Keppra was initiated. Blood gas came back with pH of 7.16. Amp of bicarb was given. The patient subsequently converted to sinus rhythm with normal heart rate prior to any Cardizem being given. The patient's breathing eased after the bicarb was given. His blood pressure and heart rate were stable and he was subsequently taken urgently to CT in order to ensure no significant changes had occurred with his subdural hematoma. Then, the patient was transported to the ICU. I received a call from Radiology that there was no significant change in the bleed. I did discuss with Pulmonary Critical Care Dr. Mcmullen as the patient arrived into the ICU. Also I discussed the case with Dr. Anderson in the midst of the event and talked to Greg Sosa with the neurosurgery service just prior to receiving the results of the CT scan. The patient was coming awake and having fairly normal purposeful movements and appeared to be significantly improved. Other labs were obtained in the midst of this episode, but no results are back yet as of this time. I will follow up on those. Total critical care time was 45 minutes. Job ID: [id number] MTDD
--- NOTE | 2018-10-16 20:12 | EKG ---
Test Reason : CODE GREEN Blood Pressure : / mmHG Vent. Rate : 141 BPM Atrial Rate : 086 BPM P-R Int : 000 ms QRS Dur : 116 ms QT Int : 360 ms P-R-T Axes : 000 042 186 degrees QTc Int : 551 ms Atrial fibrillation with rapid ventricular response Possible Inferior infarct , age undetermined Marked ST abnormality, possible anterolateral subendocardial injury Abnormal ECG No previous ECGs available Confirmed by GURPREET MURRAY, SJaylon (4) on 10/16/2018 8:12:45 PM Referred By: JOCE Confirmed By:DR. Eren VÁZQUEZ MD
[2018-10-16] MEDS: rOPINIRole HCl 2 MG TAB PO SCH (20:17)
[2018-10-16] MEDS: Acetaminophen 1,000 MG in Premix Bag 1 BAG IVPB PRN (23:19)
[2018-10-16] MEDS: Haloperidol Lactate 5 MG/ML VIAL IM PRN (23:20)
[2018-10-17] MEDS: Labetalol HCl 100 MG/20 ML VIAL SLOW IVP PRN ×6 (00:59→16:08)
[2018-10-17] MEDS: Lorazepam 2 MG/ML VIAL SLOW IVP PRN ×2 (02:07→09:08)
[2018-10-17 05:04] LABS: #Basophils 0.1 thou/uL (0.0-0.2); #Lymphocytes 1.6 thou/uL (1.20-3.40); #Neutrophils 9.2 thou/uL (1.40-6.50); %Basophils 0.5 % (0.0-1.0); %Eosinophils 0.4 % (0.0-10.0); %Lymphocytes 13.6 % (21.0-51.0); %Monocytes 8.4 % (0.0-10.0); %Neutrophils 77.1 % (42.0-75.0); Hemoglobin 12.6 g/dL (14.0-18.0); Mean Corpuscular HGB CONC 31.4 g/dL (32.0-36.0); Mean Corpuscular Volume 98.5 fL (78.0-98.0); Mean Platelet Volume 7.1 fL (7.4-10.4); Platelet Count 334 thou/uL (130-400); RBC Distribution Width 17.4 % (11.5-14.5); Red Blood Cell (RBC) Count 4.06 mill/uL (4.70-6.10); White Blood Cell (WBC) Count 11.9 thou/uL (4.8-10.8)
[2018-10-17 05:26] LABS: Anion Gap 24 mmol/L (10-20); BUN (Urea Nitrogen) 55 mg/dL (8.4-25.7); Calc. Creatinine Clearance 12 mL/min (70-130); Calcium 9.1 mg/dL (7.8-10.44); Carbon Dioxide 23 mmol/L (23-31); Chloride 97 mmol/L (98-107); Estimated GFR-MDRD 6; Glucose 94 mg/dL (83-110); Potassium 4.4 mmol/L (3.5-5.1); Sodium 140 mmol/L (136-145)
[2018-10-17] MEDS: Acetaminophen 1,000 MG in Premix Bag 1 BAG IVPB PRN ×2 (05:29→16:08)
[2018-10-17] MEDS: Haloperidol Lactate 5 MG/ML VIAL IM PRN ×2 (06:37→13:38)
--- NOTE | 2018-10-17 08:46 | PDOC.PN ---
- Subjective Encounter Start Date: 10/17/18 Encounter Start Time: 08:43 Has had some post-ictal agitation. Required some ativan and haldol. Still verbal, but not coherent in speech. - Objective Resuscitation Status - Order Detail: 10/15/18 12:07 Resuscitation Status Routine Resuscitation Status: FULL: Full Resuscitation Discussed with: Per Previous order Vital Signs & Weight: Vital Signs (12 hours) Temp Pulse BP Pulse Ox 10/17/18 07:58 100 10/17/18 07:00 98.5 F 10/17/18 06:12 85 165/69 H 10/17/18 04:50 85 161/72 H 10/17/18 03:00 98.7 F 10/17/18 02:07 85 163/73 H 10/17/18 00:59 85 179/83 H 10/16/18 23:00 97.6 F Weight Admit Weight 235 lb 3.732 oz Weight 235 lb 3.732 oz Most Recent Monitor Data Heart Rate from ECG 68 NIBP 137/74 NIBP BP-Mean 95 Respiration from ECG 29 SpO2 100 I&O: 10/16/18 10/17/18 10/18/18 06:59 06:59 06:59 Intake Total 344 675 Output Total 2800 260 5 Balance -2456 415 -5 Result Diagrams: 10/17/18 04:20 10/17/18 04:20 Additional Labs: Accuchecks 10/17/18 10/16/18 10/16/18 05:33 21:23 16:42 POC Glucose 88 98 156 H 10/16/18 10/16/18 14:44 10:39 POC Glucose 148 H 125 H Phys Exam - Physical Examination Constitutional: NAD Modestly somnolent and agitated. Four point restraints. Respiratory: no wheezing, no rales, no rhonchi, clear to auscultation bilateral Cardiovascular: RRR, no significant murmur, no rub Gastrointestinal: soft, non-tender, no distention, positive bowel sounds Musculoskeletal: no edema Skin: normal turgor Dx/Plan (1) Seizure Code(s): R56.9 - UNSPECIFIED CONVULSIONS Status: Acute (2) Subdural hematoma Code(s): S06.5X9A - TRAUM SUBDR HEM W LOC OF UNSP DURATION, INIT Status: Acute Comment: Neurosurg has no further plans/eval. (3) Acute encephalopathy Code(s): G93.40 - ENCEPHALOPATHY, UNSPECIFIED Status: Acute Comment: Repeat brain CT negative for new findings. Neuro eval indicates that the patient has receptive aphasia. Suspect there is an expressive component as well. (4) Receptive aphasia Code(s): R47.01 - APHASIA Status: Acute (5) ESRD (end stage renal disease) on dialysis Code(s): N18.6 - END STAGE RENAL DISEASE; Z99.2 - DEPENDENCE ON RENAL DIALYSIS Status: Acute (6) Contusion of left knee Code(s): S80.02XA - CONTUSION OF LEFT KNEE, INITIAL ENCOUNTER Status: Acute (7) HTN (hypertension) Code(s): I10 - ESSENTIAL (PRIMARY) HYPERTENSION Status: Chronic Comment: blood pressure is controlled. (8) Dyslipidemia Code(s): E78.5 - HYPERLIPIDEMIA, UNSPECIFIED Status: Chronic Comment: continue statin - Plan * Seizure yesterday. Post-ictal and encephalopathic. PRN ativan and haldol. Restraints to allow for dialysis. * Neurosurg planning on evacuating hematoma at some point in the future. * Continue Keppra. Will change to IV given the encephalopathy. * Continue HD. * Discussed with patient's and daughter.
--- NOTE | 2018-10-17 08:49 | CON ---
DATE OF CONSULTATION: 10/16/2018 HISTORY OF PRESENT ILLNESS: A 73-year-old gentleman, who apparently was on the stroke unit, developed seizure activity, new onset. Became confused, lethargic, was taken to the CT scanner for repeat CT; showed stable subdural hematoma, which Neurosurgery says do not require evacuation. Respiratory called me on emergency basis, thought he needs to be intubated, he was encephalopathic with significant respiratory compromise. By the time he got up to the ICU from the CT scanner, he was slightly more responsive. He has a nasal airway. His oxygen saturation was 93%. He was placed on low-flow O2. He is postictal, encephalopathic. He also apparently had evidence of rapid supraventricular tachyarrhythmias. Apparently, he was given some Ativan and Keppra. He is now in the ICU. Stat chest x-ray has been ordered, is still pending. His blood gas did show significant acidosis. PHYSICAL EXAMINATION: VITAL SIGNS: His sats are now 92%, respiratory rate 20, pulse 93, and blood pressure 156/91. CHEST: Revealed decreased breath sounds. No wheezing. CARDIAC: Normal S1 and S2. No gallops. ABDOMEN: Soft. IMPRESSION: 1. Status post seizure activity. 2. Subdural hematoma, stable. Neurosurgery apparently singed off. 3. Cardiac arrhthymias. He is already on Keppra 1000 mg twice a day. He was given Ativan 2 mg earlier. He is probably lethargic from the Ativan. He is on Cardizem for his supraventricular tachycardias and antibiotics, supportive care. If he remains lethargic, may consider putting him on noninvasive ventilation. Otherwise, supportive care. We will notify Dr. Arreaga. Job ID: [id number]
[2018-10-17] MEDS ORDERED: levETIRAcetam 500 MG TAB PO SCH (09:00)
[2018-10-17] MEDS: Doxycycline 100 MG CAP PO SCH (10:41)
[2018-10-17] MEDS: Sodium Chloride 0.9% 1,000 ML IV SCH (13:44)
--- NOTE | 2018-10-17 16:34 | PRG ---
DATE OF SERVICE: 10/16/2018 SUBJECTIVE: Patient was seen and examined at bedside and overnight events noted. Patient denies any shortness of breath or chest pain or palpitation. No history of nausea or vomiting or diarrhea or fever or chills or cramps. OBJECTIVE: GENERAL: This is an elderly male, in no apparent distress. VITAL SIGNS: Temperature 98, blood pressure 140/72. HEENT: Atraumatic, normocephalic. Oral mucosa is moist NECK: Supple. CARDIOVASCULAR: S1, S2 heard. Rate and rhythm regular. RESPIRATORY: Clear to auscultation. GASTROINTESTINAL: Abdomen is soft. MUSCULOSKELETAL: No tenderness. No edema. DERMATOLOGIC: No skin rash. NEUROLOGIC: Alert and awake and oriented X3. No focal neurologic deficits. Moving all the extremities. PSYCHIATRIC: Mood and affect normal. LABORATORY DATA: Potassium is 4.4 BUN 36, creatinine 6.5. ASSESSMENT AND PLAN: 1. End-stage renal disease. Continue dialysis on Sunday, , and Sunday. 2. Hyperkalemia . 3. Metabolic acidosis. 4. Hypertension, monitor. 5. Altered mentation per Neurosurgery. PLAN: We will continue on dialysis Sunday, , and Sunday. Job ID: [id number]
[2018-10-17] MEDS: rOPINIRole HCl 2 MG TAB PO SCH (20:31)
--- NOTE | 2018-10-17 22:27 | PRG ---
DATE OF SERVICE: 10/17/2018 SUBJECTIVE: Mr. Oliveros was seen by my associate yesterday. Apparently, he had a seizure today followed by confusion. CT scanning shows stable subdural hematoma. He is unable to give a good history when he is seen today. Seizure medicines have been adjusted. OBJECTIVE: LUNGS: Clear. HEART: Regular rhythm. ABDOMEN: Soft. VITAL SIGNS: Have been stable. IMPRESSION: Subdural hematoma with seizure. He has been seen by Neurosurgery as well. We will continue with serial exams for now. Critical care time is 35 minutes. Job ID: [id number] MTDD
--- NOTE | 2018-10-18 00:28 | PRG ---
DATE OF SERVICE: 10/17/2018 SUBJECTIVE: Patient was seen and examined at bedside and overnight events noted. Patient denies any shortness of breath or chest pain or palpitation. No history of nausea or vomiting or diarrhea or fever or chills or cramps. OBJECTIVE: GENERAL: This is a well-built male in no apparent distress. VITAL SIGNS: Temperature 98.5. Pulse 68. Respiratory rate . Blood pressure 151/82. HEENT: Atraumatic, normocephalic. Oral mucosa is moist NECK: Supple. CARDIOVASCULAR: S1, S2 heard. Rate and rhythm regular. RESPIRATORY: Clear to auscultation. GASTROINTESTINAL: Abdomen is soft. MUSCULOSKELETAL: No tenderness. No edema. DERMATOLOGIC: No skin rash. NEUROLOGIC: The patient is confused. PSYCHIATRIC: Mood and affect normal. LABORATORY DATA: Potassium is 4.4, BUN is 55, creatinine is 8.0. ASSESSMENT AND PLAN: 1. End-stage renal disease. We will continue dialysis. The patient was . 2. Hyperkalemia, better. 3. Acidosis, stable. 4. Anemia, monitor hemoglobin. 5. Hypertension. 6. Edema, resolved. 7. Recommendation, per Neurosurgery and primary team. 8. Plan is to continue dialysis as tolerated. Will heparin with dialysis. Job ID: [id number]
[2018-10-18 08:30] LABS: #Basophils 0.1 thou/uL (0.0-0.2); #Eosinphils 0.1 thou/uL (0.0-0.7); #Lymphocytes 1.7 thou/uL (1.20-3.40); #Monocytes 0.7 thou/uL (0.11-0.59); #Neutrophils 6.9 thou/uL (1.40-6.50); %Basophils 0.8 % (0.0-1.0); %Eosinophils 1.5 % (0.0-10.0); %Monocytes 7.2 % (0.0-10.0); %Neutrophils 72.5 % (42.0-75.0); Hemoglobin 12.8 g/dL (14.0-18.0); Mean Corpuscular HGB CONC 32.1 g/dL (32.0-36.0); Mean Corpuscular Volume 99.9 fL (78.0-98.0); Mean Platelet Volume 6.9 fL (7.4-10.4); Platelet Count 367 thou/uL (130-400); RBC Distribution Width 17.3 % (11.5-14.5); Red Blood Cell (RBC) Count 3.98 mill/uL (4.70-6.10); White Blood Cell (WBC) Count 9.5 thou/uL (4.8-10.8)
[2018-10-18 08:50] LABS: ALT (SGPT) 19 U/L (8-55); AST (SGOT) 24 U/L (5-34); Albumin 3.2 g/dL (3.4-4.8); Alkaline Phosphatase 122 U/L (40-150); Anion Gap 20 mmol/L (10-20); BUN (Urea Nitrogen) 45 mg/dL (8.4-25.7); Bilirubin, Total 1.1 mg/dL (0.2-1.2); Calc. Creatinine Clearance 14 mL/min (70-130); Calcium 9.2 mg/dL (7.8-10.44); Carbon Dioxide 25 mmol/L (23-31); Chloride 100 mmol/L (98-107); Estimated GFR-MDRD 7; Globulin 3.9 g/dL (2.4-3.5); Glucose 89 mg/dL (83-110); Potassium 4.6 mmol/L (3.5-5.1); Protein, Total 7.1 g/dL (5.8-8.1); Sodium 140 mmol/L (136-145)
--- NOTE | 2018-10-18 10:05 | PQF ---
DOMINICK BURNS MORGAN, PA-C [id number] CLINICAL DOCUMENTATION IMPROVEMENT CLARIFICATION FORM: ICD-10 Updated PLEASE DO AN ADDENDUM TO THE PROGRESS NOTE WITH ANY DOCUMENTATION UPDATES OR ADDITIONS AND CARRY THROUGH TO DC SUMMARY. THANK YOU. DATE: 10-14-1810-22- ATTN: YAHAIRA NICK PA-C / DR. KEMP Please exercise your independent, professional judgment in responding to the clarification form. Clinical indicators are provided on the bottom of this form for your review Please check appropriate box(s): [ ] Cerebral edema / Vasogenic edema [ ] Compression of brain [ ] Other diagnosis [ ] Unable to determine In addition, please specify: Present on Admission (POA): [ ] Yes [ ] No [ ] Unable to determine For continuity of documentation, please document condition throughout progress notes and discharge summary. Thank You. CLINICAL INDICATORS - SIGNS / SYMPTOMS / LABS H&P ([facility]): * CT FROM [facility] SHOWS A LEFT SUBDURAL HEMATOMA COLLECTION W/ ROUGHLY 2MM MIDLINE SHIFT, SLIGHT AMOUNT OF MASS EFFECT * LEFT SUBDURAL HEMATOMA W/ MINIMAL MIDLINE SHIFT 10-13 CT BRAIN: LARGE LEFT FRONTAL AND TEMPORAL SUBDURAL HEMATOMA. VERY SLIGHT 1-2 mm MIDLINE SHIFT TO RIGHT. 10-14 ([facility] E): APPEARS CONFUSED - ACUTE ENCEPHALOPATHY - WILL REPEAT CT OF BRAIN RISK FACTORS 10-12 ([facility]) * S/P FALL W/ LEFT SUBDURAL HEMATOMA W/ MINIMAL MIDLINE SHIFT 10-13 ([facility] E) * HX HTN TREATMENTS: CPOE: CT BRAIN 10-12 - NEURO CHECKS MAR: IVF NS 10-12 DOXYCYCLINE PO 10-13 Thank you, Zuri (This form is maintained as a part of the permanent medical record) 2015 [employer]. All Rights Reserved Zuri Cano RN, BS [email or web address]
--- NOTE | 2018-10-18 11:33 | PRG ---
DATE OF SERVICE: 10/18/2018 SUBJECTIVE: The patient is more awake. He is alert. He is conversant. He denies any complaints. Does admit being overall hungry. OBJECTIVE: VITAL SIGNS: Temperature 97.5, pulse 61, BP 113/53, respirations 23, O2 sat 100% on room air. GENERAL APPEARANCE: Age-appropriate male. He is awake and alert. He is conversant and interactive and appropriate. He is not agitated. HEENT: No OP lesions. HEART: Regular rate and rhythm without murmurs. LUNGS: Clear bilaterally. ABDOMEN: Soft, nontender, and nondistended. EXTREMITIES: Warm and dry. NEUROLOGIC: The patient is appropriate. He is oriented to his name, his 's name. He is answering questions correctly and appropriately. He has normal behavior and affect. He has symmetric 5/5 strength in distal upper and lower extremities. LABORATORY DATA: White count is 9.5, hemoglobin 12.8, platelets 367. Sodium 140, potassium 4.6, CO2 of 25, BUN 45, creatinine 7.5, glucose 87 to 101. LFTs normal. Albumin 3.2. Urine cultures remained negative. IMPRESSION AND PLAN: 1. Left subdural hematoma. The patient initially had some receptive aphasia and some mild right-sided weakness and had a seizure associated with this as well. I talked to Neurosurgery yesterday at length about the situation. They anticipated possibly doing evacuation of the hematoma at some point in the future. However, given his improvement, that may be reconsidered. 2. Seizure. The patient had a couple of seizures a couple of days ago post subdural. He is still on Keppra and doing very well. He has had no subsequent seizures. 3. Acute encephalopathy, appears to be resolved. 4. Receptive aphasia, remarkably improved this morning. 5. End-stage renal disease, on dialysis. We will continue with the dialysis. 6. Contusion of the left knee, stable. 7. Hypertension, well controlled. 8. Dyslipidemia, well controlled. 9. Disposition. We will have Speech evaluate the patient, clear his swallow, and get him back on the diet. He has been in restraints because of some agitation, which appears to be resolved. We can likely discontinue this today and possibly move the patient out of the ICU. Job ID: [id number]
--- NOTE | 2018-10-18 16:10 | PRG ---
DATE OF SERVICE: 10/18/2018 REASON FOR NEUROLOGY FOLLOWUP: Neurologic change and seizure. SUBJECTIVE: This patient was admitted and had altered mental status. He also suffered left hemispheric subdural and Neurosurgery has seen him. He reportedly had a seizure. The description of the seizure is not known to me. Today, he has not been observed to have any seizures. He is on Keppra 500 mg q.12 hours and EEG that was done on 10/15/2018 reportedly did not show any seizure activity, but the formal report is not in a computer locative. Another EEG is pending for later today. The patient is awake and alert. He states that this is Sherman and that the year is 2018. He has difficulty telling me exactly where he was born, but he says that he was born in [place]. He denies any pain. He denies headache. He states that he does not remember hitting his head. He is awake and alert. Cranial nerves 2 through 12 are normal. Pupils are 2 mm and reactive. Motor, 5/5 strength. DTRs 2+. Toes downgoing. Sensation is normal. There is no tremor. There is no sign of jerking clinically at this time. OBJECTIVE: VITAL SIGNS: Show blood pressure of 135/54, respiratory rate 21, heart rate is 67, and O2 sat is 100. LUNGS: Clear. HEART: No murmurs. ABDOMEN: Not distended. EXTREMITIES: No edema. JOINTS: No swelling. REVIEW OF REPORTS: Showed that there was a CT of brain done on 10/13/2018, it showed a left frontoparietal subdural of 1.5 cm in width. There was a subsequent CT of the head on 10/15/2018 that was reported as showing a left subdural hematoma of 1.4 cm. There was also minimal nkkc-rr-wpupu shift of [address] of the brain done on 10/16/2018, that showed stable left-sided subdural, stable since 10/15/2018. Other labs; creatinine on 10/18/2018, was elevated at 7.50, and BUN was also elevated at 45. White count 9.5, hemoglobin 12.8, and hematocrit 39.8. There was an INR on 10/12/2018 of 1.2. Blood gas on 10/16/2018, showed a pH of 7.16, pCO2 of 43, and pO2 of 243.8. CURRENT MEDICATIONS: His current medications include Keppra, which he is on 500 mg IV twice a day. IMPRESSION: Left subdural hematoma, also seizure disorder. He does not appear to be having seizures at this time, possibly some of his confusion could be related to renal problems. PLAN: We will continue with his Keppra and we will get a followup EEG. Job ID: [id number]
[2018-10-18] MEDS: Sodium Chloride 0.9% 1,000 ML IV SCH (17:44)
[2018-10-18] MEDS: Haloperidol Lactate 5 MG/ML VIAL IM PRN (18:01)
[2018-10-18] MEDS: rOPINIRole HCl 2 MG TAB PO SCH (21:06)
[2018-10-19 04:06] LABS: #Basophils 0.1 thou/uL (0.0-0.2); #Eosinphils 0.2 thou/uL (0.0-0.7); #Lymphocytes 1.8 thou/uL (1.20-3.40); #Monocytes 0.7 thou/uL (0.11-0.59); #Neutrophils 6.9 thou/uL (1.40-6.50); %Basophils 0.7 % (0.0-1.0); %Eosinophils 1.8 % (0.0-10.0); %Lymphocytes 18.7 % (21.0-51.0); %Monocytes 7.3 % (0.0-10.0); %Neutrophils 71.6 % (42.0-75.0); Hemoglobin 12.5 g/dL (14.0-18.0); Mean Corpuscular HGB CONC 32.2 g/dL (32.0-36.0); Mean Corpuscular Hemoglobin 31.9 pg (27.0-31.0); Mean Corpuscular Volume 99.1 fL (78.0-98.0); Mean Platelet Volume 6.7 fL (7.4-10.4); Platelet Count 433 thou/uL (130-400); RBC Distribution Width 17.3 % (11.5-14.5); Red Blood Cell (RBC) Count 3.93 mill/uL (4.70-6.10); White Blood Cell (WBC) Count 9.7 thou/uL (4.8-10.8)
[2018-10-19 04:27] LABS: Albumin 3.3 g/dL (3.4-4.8)
[2018-10-19 04:29] LABS: Calcium 9.3 mg/dL (7.8-10.44); Chloride 103 mmol/L (98-107); Potassium 4.5 mmol/L (3.5-5.1); Sodium 143 mmol/L (136-145)
[2018-10-19 04:30] LABS: Globulin 3.8 g/dL (2.4-3.5); Glucose 88 mg/dL (83-110); Protein, Total 7.1 g/dL (5.8-8.1)
[2018-10-19 04:31] LABS: Carbon Dioxide 21 mmol/L (23-31)
[2018-10-19 04:32] LABS: Bilirubin, Total 1.1 mg/dL (0.2-1.2)
[2018-10-19 04:33] LABS: Alkaline Phosphatase 124 U/L (40-150); Calc. Creatinine Clearance 11 mL/min (70-130); Estimated GFR-MDRD 6
[2018-10-19 04:34] LABS: BUN (Urea Nitrogen) 58 mg/dL (8.4-25.7)
[2018-10-19 04:35] LABS: AST (SGOT) 24 U/L (5-34); Anion Gap 24 mmol/L (10-20)
[2018-10-19 04:36] LABS: ALT (SGPT) 18 U/L (8-55)
--- NOTE | 2018-10-19 09:45 | PRG ---
DATE OF SERVICE: 10/19/2018 SUBJECTIVE: The patient is up in the chair, doing fine, has no complaints, has not had any seizure activity in the last 2 days. OBJECTIVE: VITAL SIGNS: Temperature is 98.8, pulse 76, blood pressure 138/71, O2 sat 100%. HEENT: Unremarkable. NECK: No JVD. CHEST: Clear. CARDIAC: S1 and S2, regular. ABDOMEN: Soft. EXTREMITIES: No edema. LABORATORY DATA: Sodium 143, potassium 4.5, chloride 103, CO2 of 21, BUN 58, creatinine 9.2, and glucose 88. White blood cell count 9.7, hematocrit 38.9, and platelet count 433. ASSESSMENT: 1. Cerebrovascular accident. 2. Status post seizure. 3. Subdural hematoma. 4. Cardiac arrhythmias. 5. Chronic renal failure. PLAN: 1. The patient will continue dialysis. 2. Transfer back to the stroke floor for continued evaluation. 3. Continue anticonvulsants. Job ID: [id number]
--- NOTE | 2018-10-19 19:58 | PDOC.PN ---
- Subjective Encounter Start Date: 10/19/18 Encounter Start Time: 10:00 Says he is doing well. Denies complaints. Denies pain. - Objective Resuscitation Status - Order Detail: 10/15/18 12:07 Resuscitation Status Routine Resuscitation Status: FULL: Full Resuscitation Discussed with: Per Previous order Vital Signs & Weight: Vital Signs (12 hours) Temp Pulse Ox 10/19/18 11:00 98.1 F 10/19/18 08:00 100 Weight Admit Weight 235 lb 3.732 oz Weight 235 lb 3.732 oz Most Recent Monitor Data Heart Rate from ECG 73 NIBP 171/81 NIBP BP-Mean 111 Respiration from ECG 12 SpO2 100 I&O: 10/18/18 10/19/18 10/20/18 06:59 06:59 06:59 Intake Total 1018 1502 1031 Output Total 5 0 Balance 1013 1502 1031 Result Diagrams: 10/19/18 03:31 10/19/18 03:31 Additional Labs: Accuchecks 10/19/18 10/18/18 11:32 21:08 POC Glucose 112 H 85 Phys Exam - Physical Examination Constitutional: NAD Visual impairment Respiratory: no wheezing, no rales, no rhonchi, clear to auscultation bilateral Cardiovascular: RRR, no significant murmur Gastrointestinal: soft, non-tender, no distention, positive bowel sounds Musculoskeletal: no edema Psychiatric: normal affect, A&O x 3 Skin: normal turgor Dx/Plan (1) Seizure Code(s): R56.9 - UNSPECIFIED CONVULSIONS Status: Acute Comment: Skylar (2) Subdural hematoma Code(s): S06.5X9A - TRAUM SUBDR HEM W LOC OF UNSP DURATION, INIT Status: Acute Comment: Neurosurg has plans for future drainage. Giving time to allow brain to be less reactive after seizure and the clot to liquify Doing very well now. May change. (3) Acute encephalopathy Code(s): G93.40 - ENCEPHALOPATHY, UNSPECIFIED Status: Acute Comment: Repeat brain CT negative for new findings. Neuro eval indicates that the patient has receptive aphasia. Suspect there is an expressive component as well. (4) Receptive aphasia Code(s): R47.01 - APHASIA Status: Acute Comment: Much improved. Largely resolved. (5) ESRD (end stage renal disease) on dialysis Code(s): N18.6 - END STAGE RENAL DISEASE; Z99.2 - DEPENDENCE ON RENAL DIALYSIS Status: Acute Comment: Followed by Neprhology. On scheduled hemodialysis. (6) Contusion of left knee Code(s): S80.02XA - CONTUSION OF LEFT KNEE, INITIAL ENCOUNTER Status: Acute (7) HTN (hypertension) Code(s): I10 - ESSENTIAL (PRIMARY) HYPERTENSION Status: Chronic Comment: blood pressure is controlled. 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 Can again focus on rehab. Reorder the OT services. .
[2018-10-19] MEDS: rOPINIRole HCl 2 MG TAB PO SCH (20:31)
--- NOTE | 2018-10-19 21:02 | PRG ---
DATE OF SERVICE: 10/19/2018 SUBJECTIVE: Patient was seen and examined at bedside and overnight events noted. Patient denies any shortness of breath or chest pain or palpitation. No history of nausea or vomiting or diarrhea or fever or chills or cramps. OBJECTIVE: GENERAL: This is an obese male, in no apparent distress. VITAL SIGNS: Temperature 98.1. Heart rate 73. Respiratory rate 18. Blood pressure 171/81. HEENT: Atraumatic, normocephalic. Oral mucosa is moist. NECK: Supple. CARDIOVASCULAR: S1, S2 heard. Rate and rhythm regular. RESPIRATORY: Clear to auscultation. GASTROINTESTINAL: Abdomen is soft. MUSCULOSKELETAL: No tenderness. No edema. DERMATOLOGIC: No skin rash. NEUROLOGIC: Alert and awake and oriented X3. No focal neurologic deficits. Moving all the extremities. PSYCHIATRIC: Mood and affect normal. LABORATORY DATA: Potassium is 4.5, BUN is 58, and creatinine is 9.2. ASSESSMENT AND PLAN: 1. End-stage renal disease. Continue on hemodialysis, Sunday, , and Sunday. 2. Hyperkalemia. 3. Metabolic acidosis. 4. Hypertension. 5. Edema, resolved. PLAN: To continue on dialysis as tolerated. Job ID: [id number]
[2018-10-20] MEDS: Labetalol HCl 100 MG/20 ML VIAL SLOW IVP PRN (03:49)
[2018-10-20] MEDS: Acetaminophen 325 MG TAB PO PRN ×3 (05:46→23:09)
[2018-10-20 08:51] LABS: ALT (SGPT) 25 U/L (8-55); AST (SGOT) 27 U/L (5-34); Albumin 3.6 g/dL (3.4-4.8); Alkaline Phosphatase 141 U/L (40-150); Anion Gap 23 mmol/L (10-20); BUN (Urea Nitrogen) 37 mg/dL (8.4-25.7); Bilirubin, Total 1.3 mg/dL (0.2-1.2); Calc. Creatinine Clearance 15 mL/min (70-130); Carbon Dioxide 25 mmol/L (23-31); Chloride 93 mmol/L (98-107); Estimated GFR-MDRD 8; Globulin 4.3 g/dL (2.4-3.5); Glucose 141 mg/dL (83-110); Potassium 4.3 mmol/L (3.5-5.1); Protein, Total 7.9 g/dL (5.8-8.1); Sodium 137 mmol/L (136-145)
[2018-10-20] MEDS: rOPINIRole HCl 2 MG TAB PO SCH (21:00)
--- NOTE | 2018-10-20 22:37 | PDOC.PN ---
- Subjective Encounter Start Date: 10/20/18 Encounter Start Time: 14:00 Patient says he feels fine. Says he wants to go home. Does not want to consider rehab. - Objective Resuscitation Status - Order Detail: 10/15/18 12:07 Resuscitation Status Routine Resuscitation Status: FULL: Full Resuscitation Discussed with: Per Previous order Vital Signs & Weight: Vital Signs (12 hours) Temp Pulse Pulse Pulse Resp BP BP 10/20/18 20:00 98.4 F 72 16 10/20/18 15:23 98 F 66 16 10/20/18 14:00 68 74 142/71 H 126/75 10/20/18 11:39 98.6 F 74 16 BP Pulse Ox 10/20/18 20:00 137/79 96 10/20/18 15:23 130/64 98 10/20/18 14:00 10/20/18 11:39 156/91 H 95 Weight Admit Weight 235 lb 3.732 oz Weight 235 lb 3.732 oz Most Recent Monitor Data Heart Rate from ECG 73 NIBP 171/81 NIBP BP-Mean 111 Respiration from ECG 12 SpO2 100 I&O: 10/19/18 10/20/18 10/21/18 06:59 06:59 06:59 Intake Total 1502 1031 Output Total 0 Balance 1502 1031 Result Diagrams: 10/19/18 03:31 10/20/18 07:52 Additional Labs: Accuchecks 10/20/18 10/20/18 10/20/18 20:33 16:42 10:48 POC Glucose 140 H 130 H 151 H 10/20/18 10/19/18 05:55 22:33 POC Glucose 107 98 Phys Exam - Physical Examination Constitutional: NAD Respiratory: no wheezing, no rales, no rhonchi, clear to auscultation bilateral Cardiovascular: RRR, no significant murmur Gastrointestinal: soft, non-tender, no distention, positive bowel sounds Musculoskeletal: no edema Neurological: non-focal Symmetric strength bilaterally. Dx/Plan (1) Seizure Code(s): R56.9 - UNSPECIFIED CONVULSIONS Status: Acute Comment: Skylar (2) Subdural hematoma Code(s): S06.5X9A - TRAUM SUBDR HEM W LOC OF UNSP DURATION, INIT Status: Acute Comment: Neurosurg has plans for future drainage. Giving time to allow brain to be less reactive after seizure and the clot to liquify Doing very well now. May change. (3) Acute encephalopathy Code(s): G93.40 - ENCEPHALOPATHY, UNSPECIFIED Status: Acute Comment: Repeat brain CT negative for new findings. Neuro eval indicates that the patient has receptive aphasia. Suspect there is an expressive component as well. (4) Receptive aphasia Code(s): R47.01 - APHASIA Status: Acute Comment: Much improved. Largely resolved. (5) ESRD (end stage renal disease) on dialysis Code(s): N18.6 - END STAGE RENAL DISEASE; Z99.2 - DEPENDENCE ON RENAL DIALYSIS Status: Acute Comment: Followed by Neprhology. On scheduled hemodialysis. (6) Contusion of left knee Code(s): S80.02XA - CONTUSION OF LEFT KNEE, INITIAL ENCOUNTER Status: Acute (7) HTN (hypertension) Code(s): I10 - ESSENTIAL (PRIMARY) HYPERTENSION Status: Chronic Comment: blood pressure is controlled. 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 * Discussed with the "sitter" in the room who believes he is still confused. * Answers orientation questions fairly well. * Will continue with therapy and determine the appropriateness of discharging to home. * Continue Keppra.
[2018-10-21] MEDS: Lorazepam 2 MG/ML VIAL SLOW IVP PRN ×3 (01:01→15:37)
--- NOTE | 2018-10-21 07:48 | PRG ---
DATE OF SERVICE: 10/18/2018 SUBJECTIVE: Patient was seen and examined at bedside and overnight events noted. Patient denies any shortness of breath or chest pain or palpitation. No history of nausea or vomiting or diarrhea or fever or chills or cramps. OBJECTIVE: GENERAL: This is a well-built male, in no apparent distress. VITAL SIGNS: Temperature 97.8. Heart rate 71. Respiratory rate 18. Blood pressure 134/54. HEENT: Atraumatic, normocephalic. Oral mucosa is moist NECK: Supple. CARDIOVASCULAR: S1, S2 heard. Rate and rhythm regular. RESPIRATORY: Clear to auscultation. GASTROINTESTINAL: Abdomen is soft. MUSCULOSKELETAL: No tenderness. No edema. DERMATOLOGIC: No skin rash. NEUROLOGIC: Alert and awake and oriented X3. No focal neurologic deficits. Moving all the extremities. PSYCHIATRIC: Mood and affect normal. LABORATORY DATA: Potassium is 4.6, BUN is 45, creatinine is 7.5. ASSESSMENT AND PLAN: 1. End-stage renal disease. Continue dialysis. 2. Hyperkalemia, better. 3. Metabolic acidosis. 4. Hypertension. 5. Edema. PLAN: We will continue on dialysis as tolerated. Job ID: [id number]
--- NOTE | 2018-10-21 07:48 | PRG ---
DATE OF SERVICE: 10/19/2018 TYPE OF REPORT: Followup Neurology Note PRESENT ILLNESS: The patient is being followed up by Neurology for subdural hematoma and seizures. The patient has not had anymore seizures today. He is seen at this time in dialysis. He is a little bit groggy and confused, which is about how he was yesterday as well. He has no complaints and he denies any pain. SUBJECTIVE: VITAL SIGNS: Heart rate 73, blood pressure 171/81, and respiratory rate 12. HEENT: Normal. LUNGS: Clear. HEART: No murmurs or gallops. ABDOMEN: Benign. EXTREMITIES: No clubbing, cyanosis, or edema. SKIN: No swelling. NEUROLOGICAL: He is awake and alert. He says that this is Pramod Whitaker. I asked him what year it is several times and each time he answered Pramod Whitaker, so I did not pursue that anymore because it seems to result in him being irritated, so he has some perseveration. Cranial nerves 2 through 12 tested normally. Motor, 5/5 strength. DTRs 2+. Toes downgoing. Sensation is normal. Coordination is normal. REVIEW OF TESTS: The CT of the head that was done on October 16, 2018, showed the left-sided subdural hematoma with several millimeters of midline shift to the right and that was unchanged since October 15, 2018. The patient had a followup EEG yesterday, which I dictated, but I do not see it in the chart yet. At any rate, the EEG did show fairly well-organized, 9 to 10 Hz alpha, which was improved from his previous EEG. There was some left sharply contoured ipuls-lzy-tjma of the theta frequency of 4 to 5 Hz, but no definite ttylp-axc-bvge and it was not any ongoing activity. Currently, he is on levetiracetam 500 mg IV b.i.d. Other labs today showed white count of 9.7, hemoglobin 12.5, hematocrit 38.9, and platelets 433,000. Chemistries from today showed sodium 143, potassium 4.5, chloride 103, CO2 of 21, BUN is 58, and creatinine is 9.21. He has chronic renal failure and he is getting dialysis at this time. Calcium 9.3. Total bili is 1.1. AST 24 and ALT 18. Note that the patient had an ammonia level on 10/15/2018, which was less than 12, which is within normal limits. Albumin is 3.3, which is slightly low and total serum protein 7.1. He had a thyroxine T4 on 10/15/2018, which was a little low at 4.6, normal range is 4.87 to 11.72. His TSH on 10/16/2018 was within normal range 0.4181. IMPRESSION: Status post seizure and also left frontoparietal subdural. The patient looks to be stable. May get a followup CT of the head in a few days to make sure that there is no progression of the subdural hematoma. We will continue with the Skylar. Job ID: [id number] [facility]
--- NOTE | 2018-10-21 07:49 | PRG ---
DATE OF SERVICE: 10/20/2018 SUBJECTIVE: The patient seems to be doing okay. He has been moved out of the Stroke Floor. OBJECTIVE: VITAL SIGNS: Temperature 98.0, pulse 82, respirations 18, O2 saturation 97% on room air, blood pressure 134/79. HEENT: Unremarkable. NECK: No JVD. CHEST: Clear. CARDIAC: S1 and S2. Regular. ABDOMEN: Soft. EXTREMITIES: No edema. LABORATORY DATA: Sodium 137, potassium 4.3, chloride 93, CO2 of 25, BUN 37, creatinine 6.9, glucose 141. ASSESSMENT: 1. Cerebrovascular accident. 2. Status post seizure. 3. Subdural hematoma. 4. Cardiac arrhythmias. 5. Chronic renal failure. PLAN: The patient is continuing hemodialysis and anticonvulsants, nothing further to add at this time. Job ID: [id number]
--- NOTE | 2018-10-21 07:49 | PRG ---
DATE OF SERVICE: 10/20/2018 SUBJECTIVE: Patient was seen and examined at bedside and overnight events noted. Patient denies any shortness of breath or chest pain or palpitation. No history of nausea or vomiting or diarrhea or fever or chills or cramps. OBJECTIVE: GENERAL: This is a well-built male, in no apparent distress. VITAL SIGNS: Temperature 98.0. Heart rate 82. Respiratory rate 18. Blood pressure 134/79. HEENT: Atraumatic, normocephalic. Oral mucosa is moist NECK: Supple. CARDIOVASCULAR: S1, S2 heard. Rate and rhythm regular. RESPIRATORY: Clear to auscultation. GASTROINTESTINAL: Abdomen is soft. MUSCULOSKELETAL: No tenderness. No edema. DERMATOLOGIC: No skin rash. NEUROLOGIC: Alert and awake and oriented X3. No focal neurologic deficits. Moving all the extremities. PSYCHIATRIC: Mood and affect normal. LABORATORY DATA: Potassium is 4.3, BUN is 37, creatinine is 6.9. ASSESSMENT AND PLAN: 1. End-stage renal disease. Continue on dialysis as tolerated. 2. Hyperkalemia, better. 3. Metabolic acidosis, stable. 4. Hypertension, stable. 5. Anemia. We will monitor. 6. Edema. We will remove fluid with dialysis as tolerated. Plan is to continue on dialysis as tolerated. We will follow. Job ID: [id number]
--- NOTE | 2018-10-21 07:51 | PRG ---
DATE OF SERVICE: 10/20/2018 SUBJECTIVE: This is a Neurology followup for the subdural and his seizures. He did not have anymore seizures today or yesterday. His is present. The patient has had a mild headache today on the left side of his head, but he says that it has gone now. OBJECTIVE: GENERAL: He is awake and oriented. VITAL SIGNS: Show a temperature of 98, pulse 66, blood pressure 130/64, O2 saturations 98%, and respiratory rate 16. HEENT: Normal. MOTOR: He moves all extremities well. 5/5 strength. DTRs 2+. Toes are downgoing. No cyanosis or edema. LUNGS: Clear. HEART: No murmurs. JOINTS: No swelling. DIAGNOSTIC DATA: Review of the report shows that the last CT of the head was done on 10/16/2018, it showed a iwpuqkrn-xk-gbwkt left-sided subdural several millimeters of midline shift to the right, it was unchanged since the CT that was done on 10/15/2018. LABORATORY DATA: Labs on 10/19/2018 showed a white count of 9.7, hemoglobin 12.5, hematocrit 38.9, platelets 433,000. Chemistry; sodium 137, potassium 4.3, BUN 37, creatinine 6.95. Note that he received dialysis yesterday. Total bilirubin 1.3. MEDICATIONS: Include Keppra, which he is on 500 mg IV b.i.d. to help prevent seizures. IMPRESSION: Left-sided subdural seizures. He appears to be more stable. Still has some headache at times. PLAN: We will get a followup CT of the head tomorrow, Sunday, October 21 to check on the status of the subdural. Job ID: [id number]
--- NOTE | 2018-10-21 11:36 | CT ---
HEAD CT WITHOUT CONTRAST: Date: 10-21-18 Comparison: 10-16-18 History: Reevaluate subdural hematoma. Technique: Axial CT imaging obtained at 5 mm intervals from vertex through the skull base without con trast. FINDINGS: There is mild mucosal thickening of left maxillary sinus with opacification of posterior left ethmoid air cells. There is no displaced calvarial fracture. There is a left sided subdural hematoma. There is a component of this left subdural hematoma within t he lateral and anterior aspect of the left middle cranial fossa, similar when compared to the prior e xam. There is a posterior component in the left occipital region and there is extensive subdural hematoma in the frontal region on the left. When compared to the 10-16-18 examination, no significant interval change is appreciated. There is left to right midline shift measuring in the 3 mm range. IMPRESSION: Relatively stable extensive left sided subdural hematoma with stable 3 mm left to right midline shift . POS: [facility]
--- NOTE | 2018-10-21 14:45 | PDOC.PN ---
- Subjective Encounter Start Date: 10/21/18 Encounter Start Time: 13:00 Denies complaints. Amenable to Rehab consult. Talked with nurse. He is still confused. - Objective Resuscitation Status - Order Detail: 10/15/18 12:07 Resuscitation Status Routine Resuscitation Status: FULL: Full Resuscitation Discussed with: Per Previous order Vital Signs & Weight: Vital Signs (12 hours) Temp Pulse Resp BP BP Pulse Ox 10/21/18 11:46 97.6 F 86 20 156/91 H 98 10/21/18 07:29 97.4 F L 80 18 157/89 H 98 10/21/18 04:46 111/78 10/21/18 04:15 97.3 F L 81 16 162/79 H 97 Weight Admit Weight 235 lb 3.732 oz Weight 235 lb 3.732 oz Most Recent Monitor Data Heart Rate from ECG 73 NIBP 171/81 NIBP BP-Mean 111 Respiration from ECG 12 SpO2 100 I&O: 10/20/18 10/21/18 10/22/18 06:59 06:59 06:59 Intake Total 1031 280 Balance 1031 280 Result Diagrams: 10/19/18 03:31 10/20/18 07:52 Additional Labs: Accuchecks 10/21/18 10/21/18 10/20/18 10:33 05:27 20:33 POC Glucose 156 H 110 140 H 10/20/18 16:42 POC Glucose 130 H Phys Exam - Physical Examination Constitutional: NAD Respiratory: no wheezing, no rales, no rhonchi Cardiovascular: RRR, no significant murmur, no rub Gastrointestinal: soft, non-tender, no distention, positive bowel sounds Musculoskeletal: no edema Left knee contusion largely resolved. Good bilateral strength. Still confused. Chronic central vision impairmen Dx/Plan (1) Seizure Code(s): R56.9 - UNSPECIFIED CONVULSIONS Status: Acute Comment: Post subdural. Keppra (2) Subdural hematoma Code(s): S06.5X9A - TRAUM SUBDR HEM W LOC OF UNSP DURATION, INIT Status: Acute Comment: Neurosurg has plans for future drainage. Giving time to allow brain to be less reactive after seizure and the clot to liquify Doing very well now. May change. (3) Acute encephalopathy Code(s): G93.40 - ENCEPHALOPATHY, UNSPECIFIED Status: Acute Comment: Repeat brain CT negative for new findings. Receptive aphasia improved. Still confused. Improved overall. (4) Receptive aphasia Code(s): R47.01 - APHASIA Status: Acute Comment: Much improved. Largely resolved. (5) ESRD (end stage renal disease) on dialysis Code(s): N18.6 - END STAGE RENAL DISEASE; Z99.2 - DEPENDENCE ON RENAL DIALYSIS Status: Acute Comment: Followed by Neprhology. On scheduled hemodialysis. (6) Contusion of left knee Code(s): S80.02XA - CONTUSION OF LEFT KNEE, INITIAL ENCOUNTER Status: Acute Comment: Much improved. (7) HTN (hypertension) Code(s): I10 - ESSENTIAL (PRIMARY) HYPERTENSION Status: Chronic Comment: blood pressure is controlled. 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 * Neurology following. * Neurosurg admit.
[2018-10-21] MEDS: Labetalol HCl 100 MG/20 ML VIAL SLOW IVP PRN ×2 (15:52→23:50)
[2018-10-21] MEDS: rOPINIRole HCl 2 MG TAB PO SCH (20:11)
[2018-10-22] MEDS: Acetaminophen 325 MG TAB PO PRN ×4 (03:17→20:58)
[2018-10-22 06:50] LABS: Albumin 3.5 g/dL (3.4-4.8); Anion Gap 21 mmol/L (10-20); BUN (Urea Nitrogen) 64 mg/dL (8.4-25.7); BUN/Creatinine Ratio 6.14; Calc. Creatinine Clearance 10 mL/min (70-130); Calcium 9.6 mg/dL (7.8-10.44); Carbon Dioxide 23 mmol/L (23-31); Chloride 94 mmol/L (98-107); Estimated GFR-MDRD 5; Glucose 109 mg/dL (83-110); Phosphorus 8.6 mg/dL (2.3-4.7); Potassium 4.2 mmol/L (3.5-5.1); Sodium 134 mmol/L (136-145)
--- NOTE | 2018-10-22 15:07 | EEG ---
Referring Physician: Markie ORTEGA EEG # [id number] TEST TYPE: ROUTINE PORTABLE INPATIENT REPORT: AN EEG USING THE INTERNATIONAL TEN-TWENTY SYSTEM OF ELECTRODE PLACEMENT WAS PERFORMED. The waking background consists of a well organized 8-9 hertz Alpha which is attenuated by eye opening. Photic stimulation produces no abnormalities. There is occasional, somewhat sharply contoured, Theta of 4-5 hertz seen in single waves in the left frontal-temporal area. IMPRESSION: ABNORMAL EEG DUE TO SOME SHARPLY CONTOURED SLOWING SEEN IN THE LEFT FRONTAL- TEMPORAL AREA. THERE ARE NO ACTIVE SEIZURES AT THIS TIME. THIS EEG MAY BE CONSISTENT WITH A SEIZURE DISORDER, CLINICAL CORRELATION IS SUGGESTED. [employer] Brusher: MIKIE Hyperbaric Technologist: EEG.WERNER MORA
--- NOTE | 2018-10-22 15:18 | EEG ---
Referring Physician: Pandya MARAIST EEG # [id number] TEST TYPE: ROUTINE PORTABLE INPATIENT REPORT: AN EEG USING THE INTERNATIONAL TEN-TWENTY SYSTEM OF ELECTRODE PLACEMENT WAS PERFORMED. The waking background is a 7-8 hertz alpha frequency. The patient remained awake throughout the study. There is excessive movement and EMG artifact. Photic stimulation was unremarkable. No epileptiform features were present. IMPRESSION: ESSENTIALLY NORMAL AWAKE EEG. Brand Recorder: MIKIE Clay Dry Press Operator: EEG.WERNER MORA
[2018-10-22] MEDS ORDERED: Sterile Water 10 ML VIAL FS PRN (18:04)
--- NOTE | 2018-10-22 21:02 | PDOC.PN ---
- Subjective Encounter Start Date: 10/22/18 Encounter Start Time: 11:50 Still very confused. Family reports he called his 14 times overnight. - Objective Resuscitation Status - Order Detail: 10/15/18 12:07 Resuscitation Status Routine Resuscitation Status: FULL: Full Resuscitation Discussed with: Per Previous order Vital Signs & Weight: Vital Signs (12 hours) Temp Pulse Resp BP BP Pulse Ox 10/22/18 20:00 97.5 F L 83 19 124/69 98 10/22/18 16:16 75 109/72 10/22/18 16:12 74 162/78 H 10/22/18 16:00 98.3 F 72 20 195/80 H 98 10/22/18 11:38 81 121/65 10/22/18 11:25 97.6 F 75 20 86/41 L 95 10/22/18 09:44 97.6 F 79 18 146/67 H 98 Weight Admit Weight 235 lb 3.732 oz Weight 235 lb 3.732 oz Most Recent Monitor Data Heart Rate from ECG 73 NIBP 171/81 NIBP BP-Mean 111 Respiration from ECG 12 SpO2 100 I&O: 10/21/18 10/22/18 10/23/18 06:59 06:59 06:59 Intake Total 280 856 250 Output Total 1 Balance 280 856 249 Result Diagrams: 10/19/18 03:31 10/22/18 06:00 Additional Labs: Accuchecks 10/22/18 10/22/18 10/22/18 20:10 16:46 10:30 POC Glucose 148 H 119 H 104 10/22/18 05:29 POC Glucose 104 Phys Exam - Physical Examination Constitutional: NAD Respiratory: no wheezing, no rales, no rhonchi, clear to auscultation bilateral Cardiovascular: RRR, no significant murmur Gastrointestinal: soft, non-tender, no distention Musculoskeletal: no edema Mental status waxes and wanes. Intermittently agitated. Dx/Plan (1) Subdural hematoma Code(s): S06.5X9A - TRAUM SUBDR HEM W LOC OF UNSP DURATION, INIT Status: Acute Comment: Neurosurg has plans for future drainage. Giving time to allow brain to be less reactive after seizure and the clot to liquify Doing very well now. May change. (2) Seizure Code(s): R56.9 - UNSPECIFIED CONVULSIONS Status: Acute Comment: Post subdural. Ketatira (3) Acute encephalopathy Code(s): G93.40 - ENCEPHALOPATHY, UNSPECIFIED Status: Acute Comment: Has persisted to various degree since initial admission for Subdural. On PRN Geodon. Discussed with neuro. May need additional med intervention. Requiring a sitter now. (4) Receptive aphasia Code(s): R47.01 - APHASIA Status: Acute Comment: Much improved. Largely resolved. (5) ESRD (end stage renal disease) on dialysis Code(s): N18.6 - END STAGE RENAL DISEASE; Z99.2 - DEPENDENCE ON RENAL DIALYSIS Status: Acute Comment: Followed by Neprhology. On scheduled hemodialysis. (6) Contusion of left knee Code(s): S80.02XA - CONTUSION OF LEFT KNEE, INITIAL ENCOUNTER Status: Resolved (7) HTN (hypertension) Code(s): I10 - ESSENTIAL (PRIMARY) HYPERTENSION Status: Chronic Comment: blood pressure is controlled. 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 * Discussed with Dr. Smith. * Discussed with CM. Needs some rehab. Working on options. .
[2018-10-22] MEDS: Ziprasidone 20 MG VIAL IM PRN (22:08)
[2018-10-23] MEDS: Citalopram 20 MG TAB PO SCH (08:55)
--- NOTE | 2018-10-23 10:58 | PDOC.PN ---
- Subjective Encounter Start Date: 10/23/18 Encounter Start Time: 10:57 Subjective: Resting with slight difficulty in waking him, now responsive. -: Sitter present, reports no issues but frequent attempts to stand. -: Requires assistance with all activity. No falls overnight. - Objective Resuscitation Status - Order Detail: 10/15/18 12:07 Resuscitation Status Routine Resuscitation Status: FULL: Full Resuscitation Discussed with: Per Previous order MAR Reviewed: Yes Vital Signs & Weight: Vital Signs (12 hours) Temp Pulse Resp BP BP BP Pulse Ox 10/23/18 09:20 120/68 10/23/18 08:54 98.6 F 90 16 98/64 96 10/23/18 04:00 97.6 F 83 19 125/64 95 10/23/18 00:00 98.0 F 81 19 149/64 H 95 Weight Admit Weight 235 lb 3.732 oz Weight 235 lb 3.732 oz Most Recent Monitor Data Heart Rate from ECG 73 NIBP 171/81 NIBP BP-Mean 111 Respiration from ECG 12 SpO2 100 I&O: 10/22/18 10/23/18 10/24/18 06:59 06:59 06:59 Intake Total 856 490 Output Total 1 Balance 856 489 Result Diagrams: 10/19/18 03:31 10/22/18 06:00 Additional Labs: Accuchecks 10/23/18 10/22/18 10/22/18 06:02 20:10 16:46 POC Glucose 110 148 H 119 H Phys Exam - Physical Examination HEENT: PERRLA, moist MMs Neck: supple, full ROM Respiratory: clear to auscultation bilateral Gastrointestinal: soft, non-tender, no distention Musculoskeletal: no edema, pulses present Neurological: normal sensation, moves all 4 limbs Deviation from normal: Initially drowsy, slight difficulty waking him. Able to answer questions. Skin: no rash, normal turgor Deviation from normal: Very small (1cm) wound to left knee, no active bleeding Dx/Plan (1) Acute encephalopathy Code(s): G93.40 - ENCEPHALOPATHY, UNSPECIFIED Status: Acute Comment: Has persisted to various degree since initial admission for Subdural. On PRN Geodon. Discussed with neuro. May need additional med intervention. Requiring a sitter now. (2) ESRD (end stage renal disease) on dialysis Code(s): N18.6 - END STAGE RENAL DISEASE; Z99.2 - DEPENDENCE ON RENAL DIALYSIS Status: Chronic Comment: Followed by Neprhology. On scheduled hemodialysis. (3) Receptive aphasia Code(s): R47.01 - APHASIA Status: Acute Comment: Much improved. Largely resolved. (4) Seizure Code(s): R56.9 - UNSPECIFIED CONVULSIONS Status: Acute Comment: Post subdural. Ketatira (5) Subdural hematoma Code(s): S06.5X9A - TRAUM SUBDR HEM W LOC OF UNSP DURATION, INIT Status: Acute Comment: Neurosurg has plans for future drainage. Giving time to allow brain to be less reactive after seizure and the clot to liquify Doing very well now. May change. 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 Family deciding on options. -: Will need to be sitter free x 24 hrs prior to discharge. -: For future drainage of subdural hematoma, per Neuro.
--- NOTE | 2018-10-23 11:47 | PRG ---
DATE OF SERVICE: 10/23/2018 SUBJECTIVE: A 73-year-old gentleman, being seen for end-stage renal disease. The patient denies any nausea, vomiting, or chest pain. OBJECTIVE: The patient is awake, alert. VITAL SIGNS: pulse 75, breathing 16, blood pressure 98/64. GENERAL APPEARANCE AND MENTAL STATUS: Fair. HEAD/NECK: Normocephalic. Atraumatic. EYES: EOMI. No deformity. EARS: Clear. No ulcers. NOSE: Intact. No lesions. MOUTH: Clear. No discharge. THROAT: Clear. No exudate. LUNGS: Clear. No crackles. CARDIAC: S1, S2. No rub. ABDOMEN: Benign. Bowel sounds positive. GENITALIA/RECTUM: Werner absent. BACK/EXTREMITIES: Edema 0+. NEUROLOGICAL: Alert and motor intact. SKIN: LYMPHATICS: LABORATORY DATA: Hemoglobin 12.5. ASSESSMENT: 1. _Stage 6 ESRD_. 2. Hypertension, stable. 3. Anemia, stable. 4. Medications based on glomerular filtration rate are appropriate. Job ID: [id number] MTDD
[2018-10-23] MEDS: HumaLOG 300 UNITS/3 ML VIAL SC PRN (13:01)
[2018-10-23] MEDS: Acetaminophen 325 MG TAB PO PRN (15:14)
--- NOTE | 2018-10-23 18:14 | PRG ---
DATE OF SERVICE: 10/22/2018 SUBJECTIVE: A 73-year-old being seen for end-stage renal disease. The patient denies any nausea, vomiting, or chest pain. OBJECTIVE: The patient awake, alert. VITAL SIGNS: blood pressure 121/65. GENERAL APPEARANCE AND MENTAL STATUS: Fair. HEAD/NECK: Normocephalic. Atraumatic. EYES: EOMI. No deformity. EARS: Clear. No ulcers. NOSE: Intact. No lesions. MOUTH: Clear. No discharge. THROAT: Clear. No exudate. LUNGS: Clear. No crackles. CARDIAC: S1, S2. No rub. ABDOMEN: Benign. Bowel sounds positive. GENITALIA/RECTUM: Werner absent. BACK/EXTREMITIES: Edema 0+. NEUROLOGICAL: Alert and motor intact. LABORATORY DATA: Hemoglobin 12.5. ASSESSMENT AND PLAN: 1. hemodialysis. 2. Hypertension, stable. 3. Anemia, stable. 4. Medications appropriate. Job ID: [id number]
--- NOTE | 2018-10-23 18:16 | PRG ---
DATE OF SERVICE: 10/21/2018 SUBJECTIVE: Patient was seen and examined at bedside and overnight events noted. Patient denies any shortness of breath or chest pain or palpitation. No history of nausea or vomiting or diarrhea or fever or chills or cramps. OBJECTIVE: GENERAL: This is a well-built male, in no apparent distress. VITAL SIGNS: Temperature . Heart rate . Respiratory rate 19. Blood pressure 157/84. HEENT: Atraumatic, normocephalic. Oral mucosa is moist NECK: Supple. CARDIOVASCULAR: S1, S2 heard. Rate and rhythm regular. RESPIRATORY: Clear to auscultation. GASTROINTESTINAL: Abdomen is soft. MUSCULOSKELETAL: No tenderness. No edema. DERMATOLOGIC: No skin rash. NEUROLOGIC: Alert and awake and oriented X3. No focal neurologic deficits. Moving all the extremities. PSYCHIATRIC: Mood and affect normal. LABORATORY DATA: Not done today. ASSESSMENT: 1. End-stage renal disease. Continue on dialysis as tolerated Sunday, , and Sunday. 2. Hyperkalemia. 3. Metabolic acidosis, stable. 4. Hypertension, stable. 5. Anemia. . PLAN: We will continue on dialysis as tolerated. Job ID: [id number]
[2018-10-24] MEDS: Citalopram 20 MG TAB PO SCH (09:19)
--- NOTE | 2018-10-24 12:22 | PRG ---
DATE OF SERVICE: 10/24/2018 SUBJECTIVE: A 73-year-old gentleman being seen for end-stage renal disease. The patient cut-off dialysis today. OBJECTIVE: GENERAL: The patient is awake, alert, in no acute distress. VITAL SIGNS: Afebrile, pulse 77, breathing 16, blood pressure 117/57. GENERAL APPEARANCE AND MENTAL STATUS: Fair. HEAD/NECK: Normocephalic. Atraumatic. EYES: EOMI. No deformity. EARS: Clear. No ulcers. NOSE: Intact. No lesions. MOUTH: Clear. No discharge. THROAT: Clear. No exudate. LUNGS: Clear. No crackles. CARDIAC: S1, S2. No rub. ABDOMEN: Benign. Bowel sounds positive. GENITALIA/RECTUM: Werner absent. BACK/EXTREMITIES: Edema 0+. NEUROLOGICAL: Alert and motor intact. LABORATORY DATA: Labs reviewed. ASSESSMENT: 1. Stage 3 chronic kidney disease, on hemodialysis. 2. Hypertension, stable. 3. Anemia, stable. 4. Medications based on glomerular filtration rate are appropriate. Job ID: [id number]
[2018-10-24] MEDS: Acetaminophen 325 MG TAB PO PRN ×2 (13:22→22:26)
--- NOTE | 2018-10-24 14:45 | PDOC.PN ---
- Subjective Encounter Start Date: 10/24/18 Encounter Start Time: 14:40 Mr. Oliveros as seen today in follow-up of traumatic subdural hematoma. He does not have any complaints. His says he was a bit nauseated earlier today. He has been restless - Objective Resuscitation Status - Order Detail: 10/15/18 12:07 Resuscitation Status Routine Resuscitation Status: FULL: Full Resuscitation Discussed with: Per Previous order MAR Reviewed: Yes Vital Signs & Weight: Vital Signs (12 hours) Temp Pulse Resp BP BP Pulse Ox 10/24/18 11:43 98.5 F 84 16 161/85 H 98 10/24/18 08:47 117/57 L 10/24/18 07:39 98.7 F 77 16 166/82 H 97 10/24/18 04:00 97.5 F L 84 19 147/71 H 98 Weight Admit Weight 235 lb 3.732 oz Weight 235 lb 3.732 oz Most Recent Monitor Data Heart Rate from ECG 73 NIBP 171/81 NIBP BP-Mean 111 Respiration from ECG 12 SpO2 100 I&O: 10/23/18 10/24/18 10/25/18 06:59 06:59 06:59 Intake Total 490 620 Output Total 1 Balance 489 620 Result Diagrams: 10/19/18 03:31 10/22/18 06:00 Additional Labs: Accuchecks 10/24/18 10/24/18 10/23/18 10:43 06:02 20:19 POC Glucose 154 H 120 H 153 H 10/23/18 16:43 POC Glucose 98 Phys Exam - Physical Examination HEENT: PERRLA Respiratory: no wheezing, no rales, no rhonchi, clear to auscultation bilateral Cardiovascular: RRR, no significant murmur, no rub Gastrointestinal: soft, non-tender, no distention, positive bowel sounds Musculoskeletal: edema present trace pedal edema Neurological: non-focal, moves all 4 limbs Dx/Plan (1) Seizure Code(s): R56.9 - UNSPECIFIED CONVULSIONS Status: Acute Comment: Post subdural. Keppra (2) Subdural hematoma Code(s): S06.5X9A - TRAUM SUBDR HEM W LOC OF UNSP DURATION, INIT Status: Acute Comment: Neurosurg has plans for future drainage. Giving time to allow brain to be less reactive after seizure and the clot to liquify Doing very well now. May change. (3) ESRD (end stage renal disease) on dialysis Code(s): N18.6 - END STAGE RENAL DISEASE; Z99.2 - DEPENDENCE ON RENAL DIALYSIS Status: Chronic Comment: Followed by Neprhology. On scheduled hemodialysis. (4) HTN (hypertension) Code(s): I10 - ESSENTIAL (PRIMARY) HYPERTENSION Status: Chronic Comment: blood pressure is controlled. - Plan * Mr. Oliveros was admitted by the Neurosurgery team for a traumatic subdural hematoma. He was treated non-operatively. He later developed a seizure likely as a result of the subdural. He has been placed on Keppra for this. He has progressed well with PT, but continues to have some intermittent confusion, and some balance and gait difficulties. * HTN- blood pressure has been labile- but mostly in an acceptable range- will continue with the current regimen * ESRD- continue dialysis * I strongly recommend halfway or rehab prior to discharge due to high risk of fall, and intermittent confusion- which should improve with time. This was discussed with the patient and he says " whatever". I asked him if that means "yes'- and he says " whatever you say".
[2018-10-24] MEDS: Ondansetron PF 4 MG/2 ML Vial IVP PRN (14:58)
[2018-10-24] MEDS: Lorazepam 2 MG/ML VIAL SLOW IVP PRN ×2 (14:58→22:28)
[2018-10-24] MEDS ORDERED: Heparin 10,000 UNITS/ 10 ML VIAL ONE (15:06)
--- NOTE | 2018-10-24 19:21 | HP ---
This is a 15 minutes subsequent visit, in which 15 minutes were spent reviewing the imaging record, evaluation, examination, and formulation of plan. 50% time was spent in counseling on Lalit Oliveros. Mr. Oliveros has been in the hospital now for over a week. His head CT from a couple days ago continues to demonstrate retraction of his left subdural hematoma. It is starting to become more chronic in nature, but is not enlarging. This morning, the patient has baseline visual deficits, presumably from his hypertension, renal disease, but follows commands and does answer questions appropriately. We will arrange followup in our clinic, I suspect over the next couple weeks with a repeat head CT. Hopefully, we could avoid any type of surgery in this patient. Job ID: [id number]
[2018-10-24] MEDS: Melatonin 3 MG TAB PO PRN (22:27)
[2018-10-25] MEDS: Ondansetron ODT 4 MG TAB PO PRN (02:45)
[2018-10-25] MEDS: Acetaminophen 325 MG TAB PO PRN ×2 (02:45→21:36)
--- NOTE | 2018-10-25 07:53 | CT ---
PRELIMINARY REPORT/[facility]/EMERGENTY AFTER-HOURS PROCEDURE CT Head Without Contrast EXAM DATE/TIME: 10/24/2018 11:47 PM CLINICAL HISTORY: 73 years old, male; Injury or trauma; Fall; Initial encounter; Blunt trauma (contusions or hematomas) ; Patient HX: S/P fall on floor, AMS TECHNIQUE: Axial computed tomography images of the head/brain without contrast. COMPARISON: CT Brain WO Con 10/13/2018 4:55 AM FINDINGS: Brain: Decrease in size of left frontotemporoparietal subdural hematoma. For example, this measured 1 5 mm in transverse dimension at the mid parietal level on prior and now measures 10 mm at equivalent level. Equivocal 4 mm petechial hemorrhage, left frontal lobe (series 2 image 11) vs volume average a rtifact from bony density one slice inferior. Midline shift: Stable approximately 2 mm of left to right midline shift. Ventricles: Normal. No ventriculomegaly. Bones/joints: Normal. No acute fracture. Sinuses: Normal as visualized. No acute sinusitis. Mastoid air cells: Normal as visualized. No mastoid effusion. Soft tissues: Normal. IMPRESSION: Decrease in size of left frontotemporoparietal subdural hematoma. Equivocal 4 mm petechial hemorrhage, left frontal lobe (series 2 image 11) vs volume average artifact from bony density one slice inferior. Stable approximately 2 mm of left to right midline shift. Thank you for allowing us to participate in the care of your patient. Dictated and Authenticated by: Tai Smith MD 10/25/2018 2:29 AM Central Time ([place] & [place]) CT BRAIN: DATE: 10/24/2018. HISTORY: Status post fall. Altered mental status. Subdural hematoma. FINDINGS: Noncontrast enhanced CT images of the brain are obtained on 10/24/2018. Comparison is made to previou s exam from 10/21/2018. CT images brain demonstrate again a left frontal parietal moderate-sized subdural hematoma with acute and chronic components. There is mild aaak-ch-jupbd shift not significantly changed since the previ ous exam from 3 days earlier. The subdural hematoma appears to be resolving and has changed in densi ty; however, the volume is unchanged since the previous comparison CT. No definite evidence of rossy rial fracture is seen. No evidence of significant intracranial strokes or contusions seen. The vent ricles are of similar size and unchanged. IMPRESSION: Chronic moderate-sized left subdural hematoma with some midline shift not significantly changed in sh ift or subdural volume when compared to the previous comparison exam. POS: [facility]
--- NOTE | 2018-10-25 08:01 | RAD ---
2 VIEWS RIGHT FOREARM: Date: 10/24/18 HISTORY: Status post fall, right forearm pain. FINDINGS: AP and lateral views of right forearm obtained. There is a negative ulnar variance. Soft tissue calcifications seen. There is an area of lucency involving the medial aspect of the coronoid process of the ulna. This may represent chronic changes versus an acute focal intraarticular fracture. I do recommend further eval uation using 4 views of the right elbow. Findings called to John, who is the charge nurse on . I called and spoke with her at 075 2 hours on 10/25/18. IMPRESSION: Possible right coronoid process fracture. Correlate with dedicated right elbow radiographs if there i s clinical concern and focal tenderness in this region. CODE CR. POS: [facility]
--- NOTE | 2018-10-25 08:08 | RAD ---
THREE VIEWS RIGHT HAND: HISTORY: Fall. FINDINGS: AP, lateral, and oblique views right hand obtained. Three views right hand demonstrate vascular calcification of the right hand. No evidence of right hager nd fractures, subluxations, or bony lesions seen. IMPRESSION: Normal 3 views right hand. POS: [facility]
--- NOTE | 2018-10-25 09:12 | RAD ---
RIGHT ELBOW 4 VIEWS: HISTORY: A 73-year-old male with a history of injury to right elbow following a fall. FINDINGS: There is a displaced irregular fracture involving the coronoid process of the ulna extending intraart icularly. Probable small joint effusion. Prominent vascular calcifications. The distal humerus and radial head appear intact. Mild degenerative changes. IMPRESSION: Irregular displaced ulnar coronoid process fracture extending intraarticularly. Minimal joint effusi on. POS: [facility]
[2018-10-25] MEDS: Citalopram 20 MG TAB PO SCH (10:23)
--- NOTE | 2018-10-25 11:47 | PRG ---
DATE OF SERVICE: 10/25/2018 SUBJECTIVE: A 73-year-old gentleman being seen for end-stage renal disease. The patient denies any complaints. Denies any nausea, vomiting, or chest pain. OBJECTIVE: GENERAL: The patient is awake and alert. VITAL SIGNS: Pulse 77, breathing 16, and blood pressure 114/85. GENERAL APPEARANCE AND MENTAL STATUS: Fair. HEAD/NECK: Normocephalic. Atraumatic. EYES: EOMI. No deformity. EARS: Clear. No ulcers. NOSE: Intact. No lesions. MOUTH: Clear. No discharge. THROAT: Clear. No exudate. LUNGS: Clear. No crackles. CARDIAC: S1, S2. No rub. ABDOMEN: Benign. Bowel sounds positive. GENITALIA/RECTUM: Werner absent. BACK/EXTREMITIES: Edema 0+. NEUROLOGICAL: Alert and motor intact. LABORATORY DATA: Labs reviewed. Hemoglobin 12.5. ASSESSMENT: 1. Stage 3 chronic kidney disease, continue hemodialysis. 2. Hypertension, stable. 3. Anemia, stable. 4. Medications based on GFR as appropriate. Job ID: [id number]
--- NOTE | 2018-10-25 17:42 | PDOC.PN ---
- Subjective Encounter Start Date: 10/25/18 Encounter Start Time: 10:30 Mr. Oliveros was seen today in follow-up of traumatic subdural. It is reported that he had a fall last night when he tried to get up. He injured his elbow, and X-ray's were obtained. He also continues to be very restless, and does no sleep much - Objective Resuscitation Status - Order Detail: 10/15/18 12:07 Resuscitation Status Routine Resuscitation Status: FULL: Full Resuscitation Discussed with: Per Previous order MAR Reviewed: Yes Vital Signs & Weight: Vital Signs (12 hours) Temp Pulse Resp BP Pulse Ox 10/25/18 15:56 155/78 H 10/25/18 15:36 97.6 F 77 18 100 10/25/18 11:29 97.6 F 77 18 153/93 H 98 10/25/18 08:00 97.6 F 77 18 155/68 H 95 Weight Admit Weight 235 lb 3.732 oz Weight 235 lb 3.732 oz Most Recent Monitor Data Heart Rate from ECG 73 NIBP 171/81 NIBP BP-Mean 111 Respiration from ECG 12 SpO2 100 I&O: 10/24/18 10/25/18 10/26/18 06:59 06:59 06:59 Intake Total 620 840 100 Output Total 500 Balance 620 840 -400 Result Diagrams: 10/19/18 03:31 10/22/18 06:00 Additional Labs: Accuchecks 10/25/18 10/25/18 10/24/18 16:15 10:41 20:19 POC Glucose 128 H 127 H 129 H Phys Exam - Physical Examination HEENT: PERRLA Respiratory: no wheezing, no rales, no rhonchi, clear to auscultation bilateral Cardiovascular: RRR, no significant murmur, no rub Gastrointestinal: soft, non-tender, positive bowel sounds + swelling on the right medial elbow, with point tenderness + swelling in both lower extremities Neurological: non-focal Dx/Plan (1) Closed fracture of ulna, proximal, right Code(s): S52.001A - UNSP FRACTURE OF UPPER END OF RIGHT ULNA, INIT FOR CLOS FX Status: Acute (2) Seizure Code(s): R56.9 - UNSPECIFIED CONVULSIONS Status: Acute Comment: Post subdural. Ketatira (3) Subdural hematoma Code(s): S06.5X9A - TRAUM SUBDR HEM W LOC OF UNSP DURATION, INIT Status: Acute Comment: Neurosurg has plans for future drainage. Giving time to allow brain to be less reactive after seizure and the clot to liquify Doing very well now. May change. (4) ESRD (end stage renal disease) on dialysis Code(s): N18.6 - END STAGE RENAL DISEASE; Z99.2 - DEPENDENCE ON RENAL DIALYSIS Status: Chronic Comment: Followed by Neprhology. On scheduled hemodialysis. (5) HTN (hypertension) Code(s): I10 - ESSENTIAL (PRIMARY) HYPERTENSION Status: Chronic Comment: blood pressure is controlled. - Plan * Right Proximal Ulnar fracture- will consult Orthopedics * Subdural hematoma- conservative management- stable- but he has some underlying encephalopathy which waxes and wanes * Seizure- continue Keppra- but this can be changed to oral * He was reported to have had some diarrhea- will check a C. Diff * HTN- blood pressure is stable * ESRD- continue dialysis * Await family decision regarding discharge placement.
[2018-10-25 17:49] LABS: Potassium 4.3 mmol/L (3.5-5.1)
[2018-10-25] MEDS ORDERED: Sodium Chloride 0.9% 500 ML IV SCH (18:00)
[2018-10-25] MEDS: Ondansetron PF 4 MG/2 ML Vial IVP PRN (21:36)
[2018-10-26] MEDS: Zolpidem Tartrate 5 MG TAB PO PRN (00:27)
[2018-10-26] MEDS: Ondansetron ODT 4 MG TAB PO PRN ×2 (00:46→08:52)
[2018-10-26] MEDS ORDERED: Promethazine HCl 12.5 MG in Sodium Chloride 0.9% 50 ML IVPB PRN (02:31)
[2018-10-26] MEDS: Acetaminophen 325 MG TAB PO PRN (05:31)
[2018-10-26] MEDS: Ondansetron PF 4 MG/2 ML Vial IVP PRN (05:31)
[2018-10-26] MEDS: Ziprasidone 20 MG VIAL IM PRN ×2 (08:34→23:24)
--- NOTE | 2018-10-26 11:27 | PDOC.PN ---
- Subjective Encounter Start Date: 10/26/18 Encounter Start Time: 10:45 Mr. Oliveros was seen today in follow-up of Subdural hematoma, and recent fall. He was reported to be agitated again last night. Family and staff report that he has not slept in days. When I see him in dialysis, he was sound asleep. He has been given Geodon earlier. - Objective Resuscitation Status - Order Detail: 10/15/18 12:07 Resuscitation Status Routine Resuscitation Status: FULL: Full Resuscitation Discussed with: Per Previous order MAR Reviewed: Yes Vital Signs & Weight: Vital Signs (12 hours) Temp Pulse Resp BP Pulse Ox 10/26/18 07:30 97.8 F 81 16 135/61 96 10/26/18 03:48 97.5 F L 84 16 137/72 98 10/26/18 00:00 98.5 F 87 18 136/74 96 Weight Admit Weight 235 lb 3.732 oz Weight 235 lb 3.732 oz Most Recent Monitor Data Heart Rate from ECG 73 NIBP 171/81 NIBP BP-Mean 111 Respiration from ECG 12 SpO2 100 I&O: 10/25/18 10/26/18 10/27/18 06:59 06:59 06:59 Intake Total 840 350 200 Output Total 500 Balance 840 -150 200 Result Diagrams: 10/19/18 03:31 10/25/18 17:15 Additional Labs: Accuchecks 10/26/18 10/25/18 10/25/18 05:24 20:47 16:15 POC Glucose 219 H 116 H 128 H Phys Exam - Physical Examination HEENT: PERRLA Respiratory: no wheezing, no rales, no rhonchi, clear to auscultation bilateral Cardiovascular: RRR, no significant murmur, no rub Gastrointestinal: soft, non-tender, no distention, positive bowel sounds Musculoskeletal: pulses present, edema present + venous stasis changes Dx/Plan (1) Closed fracture of ulna, proximal, right Code(s): S52.001A - UNSP FRACTURE OF UPPER END OF RIGHT ULNA, INIT FOR CLOS FX Status: Acute (2) Seizure Code(s): R56.9 - UNSPECIFIED CONVULSIONS Status: Acute Comment: Post subdural. Keppra (3) Subdural hematoma Code(s): S06.5X9A - TRAUM SUBDR HEM W LOC OF UNSP DURATION, INIT Status: Acute Comment: Neurosurg has plans for future drainage. Giving time to allow brain to be less reactive after seizure and the clot to liquify Doing very well now. May change. (4) ESRD (end stage renal disease) on dialysis Code(s): N18.6 - END STAGE RENAL DISEASE; Z99.2 - DEPENDENCE ON RENAL DIALYSIS Status: Chronic Comment: Followed by Neprhology. On scheduled hemodialysis. (5) HTN (hypertension) Code(s): I10 - ESSENTIAL (PRIMARY) HYPERTENSION Status: Chronic Comment: blood pressure is controlled. - Plan * Subdural hematoma- stable * Ulnar fracture- await Orthopedic evaluation * ESRD- continue dialysis * HTN - blood pressure is stable * Metabolic encephalopathy- restlessness- he seems to have responded to Geodon, will try this as needed, and hopefully if the sleep deprivation can be corrected , his mental status will improve * Seizure- will change to oral Keppra * Still await family input regarding placement.
--- NOTE | 2018-10-26 11:29 | PRG ---
DATE OF SERVICE: 10/26/2018 SUBJECTIVE: A 73-year-old gentleman, being seen for end-stage renal disease. The patient denies any nausea, vomiting, or chest pain. OBJECTIVE: GENERAL: The patient is awake and alert. VITAL SIGNS: Afebrile. Pulse 81, breathing 16, blood pressure 135/61. GENERAL APPEARANCE AND MENTAL STATUS: Fair. HEAD/NECK: Normocephalic. Atraumatic. EYES: EOMI. No deformity. EARS: Clear. No ulcers. NOSE: Intact. No lesions. MOUTH: Clear. No discharge. THROAT: Clear. No exudate. LUNGS: Clear. No crackles. CARDIAC: S1, S2. No rub. ABDOMEN: Benign. Bowel sounds positive. GENITALIA/RECTUM: Werner absent. BACK/EXTREMITIES: Edema 0+. NEUROLOGICAL: Alert and motor intact. LABORATORY DATA: Labs reviewed. ASSESSMENT: 1. Stage 6 chronic kidney disease, continue hemodialysis. 2. Hypertension, stable. 3. Anemia, stable. 4. Medications based on GFR as appropriate. Job ID: [id number] [facility]
--- NOTE | 2018-10-26 12:32 | CON ---
DATE OF CONSULTATION: ORTHOPEDIC CONSULT NOTE CHIEF COMPLAINT: Right elbow pain. HISTORY OF PRESENT ILLNESS: Mr. Oliveros is a 73-year-old male, who sustained a subdural hematoma. He subsequently had a seizure-like activity. He is being in the hospital for over a week now. The patient was complaining of right elbow pain, and x-ray of the forearm, elbow, and hand was obtained yesterday. These demonstrated a coronoid process fracture of the olecranon. Orthopedics was consulted to evaluate this injury. The patient is currently comfortable. He is using the arm. He has some bruising and soreness, but he is able to flex and extend well. He is unsure when he fell or how he injured his arm. PAST MEDICAL HISTORY: End-stage renal disease, diabetes mellitus, hypertension, history of foot ulceration, history of coronary artery disease. PAST SURGICAL HISTORY: Includes CABG, cholecystectomy, AV fistula placement. ALLERGIES: NONE. FAMILY MEDICAL HISTORY: Negative. SOCIAL HISTORY: The patient denies alcohol, tobacco, or drug use. IMAGING DATA: X-rays of the elbow demonstrate a minimally displaced coronoid process fracture of the medial facet. The elbow is not subluxated or dislocated. There is no more distal fracture visible in the forearm. PHYSICAL EXAMINATION: VITAL SIGNS: Temperature is 97.8, pulse is 81, respiratory rate 16, oxygen 96% on room air, blood pressure is 135/61. GENERAL: The patient is alert. He is lying supine. He will answer questions, but is somewhat confused with history. HEENT: Normocephalic, atraumatic. RESPIRATORY: Breathing comfortably. ABDOMEN: Soft, nontender, and nondistended. CARDIOVASCULAR: Pulses are palpable and regular. MUSCULOSKELETAL: The patient's right elbow has ecchymosis. There is minimal swelling. He is able to range the elbow from 5 to 115 degrees. He has minimal pain to palpation. He does have some discomfort with limits of motion. Neurovascularly intact in the upper extremity. IMPRESSION: Coronoid process fracture of the right elbow in a patient with a subdural hematoma. PLAN: The patient can be treated nonoperatively for this. He does not need a sling or splint. He has a subacute fracture, which is in a healing phase. I think his elbow will do fine, although he does have a small chance of posttraumatic arthritis given the intraarticular nature of the fracture. Risk of surgery wound be greater than benefit given his recent head injury. He could follow up in the Orthopedic Clinic in 3 or 4 weeks. Job ID: [id number]
[2018-10-26] MEDS ORDERED: levETIRAcetam 500 MG TAB PO SCH ×2 (13:00→21:00)
[2018-10-26] MEDS: Citalopram 20 MG TAB PO SCH (14:46)
[2018-10-26] MEDS: Metoclopramide 10 MG/10 ML UDCUP PO SCH ×2 (14:47→20:21)
[2018-10-26] MEDS ORDERED: Sodium Chloride 0.9% 500 ML IVPB ONE (16:00)
[2018-10-26] MEDS: HumaLOG 300 UNITS/3 ML VIAL SC PRN (17:59)
[2018-10-26] MEDS: levETIRAcetam 500 MG TAB PO SCH (20:22)
[2018-10-26] MEDS: Melatonin 3 MG TAB PO PRN (20:22)
[2018-10-26] MEDS: Ziprasidone 20 MG CAP PO PRN (20:22)
[2018-10-27] MEDS: clonazePAM 1 MG TAB PO PRN ×2 (00:29→23:00)
[2018-10-27 07:14] LABS: #Eosinphils 0.1 thou/uL (0.0-0.7); #Lymphocytes 2.4 thou/uL (1.20-3.40); #Monocytes 1.1 thou/uL (0.11-0.59); #Neutrophils 9.5 thou/uL (1.40-6.50); %Basophils 0.4 % (0.0-1.0); %Eosinophils 0.8 % (0.0-10.0); %Monocytes 8.1 % (0.0-10.0); %Neutrophils 72.8 % (42.0-75.0); Hemoglobin 12.2 g/dL (14.0-18.0); Mean Corpuscular HGB CONC 31.8 g/dL (32.0-36.0); Mean Corpuscular Hemoglobin 31.8 pg (27.0-31.0); Platelet Count 325 thou/uL (130-400); RBC Distribution Width 16.2 % (11.5-14.5); Red Blood Cell (RBC) Count 3.85 mill/uL (4.70-6.10); White Blood Cell (WBC) Count 13.1 thou/uL (4.8-10.8)
[2018-10-27 07:30] LABS: Anion Gap 17 mmol/L (10-20); BUN (Urea Nitrogen) 22 mg/dL (8.4-25.7); Calc. Creatinine Clearance 19 mL/min (70-130); Calcium 9.7 mg/dL (7.8-10.44); Carbon Dioxide 29 mmol/L (23-31); Chloride 98 mmol/L (98-107); Estimated GFR-MDRD 11; Glucose 115 mg/dL (83-110); Potassium 3.9 mmol/L (3.5-5.1); Sodium 140 mmol/L (136-145)
[2018-10-27] MEDS: Citalopram 20 MG TAB PO SCH (09:57)
[2018-10-27] MEDS: Metoclopramide 10 MG/10 ML UDCUP PO SCH ×3 (09:58→20:24)
[2018-10-27] MEDS: levETIRAcetam 500 MG TAB PO SCH ×2 (09:58→20:24)
--- NOTE | 2018-10-27 12:29 | PDOC.PN ---
- Subjective Encounter Start Date: 10/27/18 Encounter Start Time: 12:27 Mr. Oliveros was seen today in follow-up of traumatic subdural. He is sleeping again- which he likely needs. No complaints voiced by staff. - Objective Resuscitation Status - Order Detail: 10/15/18 12:07 Resuscitation Status Routine Resuscitation Status: FULL: Full Resuscitation Discussed with: Per Previous order MAR Reviewed: Yes Vital Signs & Weight: Vital Signs (12 hours) Temp Pulse Resp BP Pulse Ox 10/27/18 11:56 98.2 F 79 16 157/68 H 94 L 10/27/18 08:00 97.0 F L 74 20 151/73 H 98 10/27/18 06:03 97.2 F L 79 18 148/76 H 97 Weight Admit Weight 235 lb 3.732 oz Weight 235 lb 3.732 oz Most Recent Monitor Data Heart Rate from ECG 73 NIBP 171/81 NIBP BP-Mean 111 Respiration from ECG 12 SpO2 100 I&O: 10/26/18 10/27/18 10/28/18 06:59 06:59 06:59 Intake Total 350 1969 Output Total 500 1900 Balance -150 69 Result Diagrams: 10/27/18 06:09 10/27/18 06:09 Additional Labs: Accuchecks 10/27/18 10/27/18 10/26/18 10:52 06:12 20:51 POC Glucose 163 H 107 122 H 10/26/18 16:14 POC Glucose 175 H Phys Exam - Physical Examination HEENT: PERRLA Respiratory: no wheezing, no rales, no rhonchi, clear to auscultation bilateral Cardiovascular: RRR, no significant murmur, no rub Gastrointestinal: soft, non-tender, no distention, positive bowel sounds Musculoskeletal: edema present trace pedal edema Neurological: non-focal Dx/Plan (1) Subdural hematoma Code(s): S06.5X9A - TRAUM SUBDR HEM W LOC OF UNSP DURATION, INIT Status: Acute Comment: Neurosurg has plans for future drainage. Giving time to allow brain to be less reactive after seizure and the clot to liquify Doing very well now. May change. (2) Closed fracture of ulna, proximal, right Code(s): S52.001A - UNSP FRACTURE OF UPPER END OF RIGHT ULNA, INIT FOR CLOS FX Status: Acute (3) Seizure Code(s): R56.9 - UNSPECIFIED CONVULSIONS Status: Acute Comment: Post subdural. Skylar (4) ESRD (end stage renal disease) on dialysis Code(s): N18.6 - END STAGE RENAL DISEASE; Z99.2 - DEPENDENCE ON RENAL DIALYSIS Status: Chronic Comment: Followed by Neprhology. On scheduled hemodialysis. (5) HTN (hypertension) Code(s): I10 - ESSENTIAL (PRIMARY) HYPERTENSION Status: Chronic Comment: blood pressure is controlled. - Plan * S/P Traumatic Subdural- Clinically stable * Metabolic encephalopathy- improving- likely exacerbated by severe sleep deprivation * HTN - blood pressure is controlled * Seizures- stable * Ulnar fracture- Orthopedic recommendations noted- this should heal without surgical intervention- he also does not need a sling- will discontinue * Await family input regarding discharge disposition.
--- NOTE | 2018-10-27 12:29 | PRG ---
DATE OF SERVICE: 10/27/2018 SUBJECTIVE: A 73-year-old gentleman, being seen for end-stage renal disease. The patient denies any nausea, vomiting, or chest pain. OBJECTIVE: GENERAL: The patient is awake and alert. VITAL SIGNS: Pulse 71, breathing 16, and blood pressure 148/76. GENERAL APPEARANCE AND MENTAL STATUS: Fair. HEAD/NECK: Normocephalic. Atraumatic. EYES: EOMI. No deformity. EARS: Clear. No ulcers. NOSE: Intact. No lesions. MOUTH: Clear. No discharge. THROAT: Clear. No exudate. LUNGS: Clear. No crackles. CARDIAC: S1, S2. No rub. ABDOMEN: Benign. Bowel sounds positive. GENITALIA/RECTUM: Werner absent. BACK/EXTREMITIES: Edema 0+. NEUROLOGICAL: Alert and motor intact. LABORATORY DATA: Labs reviewed. ASSESSMENT AND RECOMMENDATIONS: 1. Stage 6 chronic kidney disease, continue hemodialysis. 2. Hypertension, stable. 3. Anemia, stable. 4. Medications based on glomerular filtration rate appropriate. Job ID: [id number]
[2018-10-27] MEDS: Acetaminophen 325 MG TAB PO PRN ×2 (15:53→20:24)
[2018-10-27] MEDS: HumaLOG 300 UNITS/3 ML VIAL SC PRN (19:36)
[2018-10-27] MEDS: Ziprasidone 20 MG CAP PO PRN (20:24)
[2018-10-27] MEDS: Melatonin 3 MG TAB PO PRN (20:24)
[2018-10-27] MEDS: Zolpidem Tartrate 5 MG TAB PO PRN (22:11)
[2018-10-28] MEDS: Citalopram 20 MG TAB PO SCH (09:56)
[2018-10-28] MEDS: Metoclopramide 10 MG/10 ML UDCUP PO SCH ×2 (09:56→16:09)
[2018-10-28] MEDS: levETIRAcetam 500 MG TAB PO SCH (09:56)
--- NOTE | 2018-10-28 11:02 | PDOC.PN ---
- Subjective Encounter Start Date: 10/28/18 Encounter Start Time: 09:30 Mr. Oliveros was seen today in follow-up of post traumatic subdural. He is currently sleeping again. It is reported from staff that he will awaken to eat, and that he is more compliant with pressing the call light before getting out of bed. He has not required restraints or a sitter in the past 2 days - Objective Resuscitation Status - Order Detail: 10/15/18 12:07 Resuscitation Status Routine Resuscitation Status: FULL: Full Resuscitation Discussed with: Per Previous order MAR Reviewed: Yes Vital Signs & Weight: Vital Signs (12 hours) Temp Pulse Pulse Pulse Resp BP BP 10/28/18 10:00 70 79 138/67 143/70 H 10/28/18 07:58 98.3 F 80 18 10/28/18 04:00 98.7 F 83 18 10/28/18 00:00 97.8 F 78 19 BP Pulse Ox 10/28/18 10:00 10/28/18 07:58 138/80 95 10/28/18 04:00 116/68 96 10/28/18 00:00 140/73 95 Weight Admit Weight 235 lb 3.732 oz Weight 235 lb 3.732 oz Most Recent Monitor Data Heart Rate from ECG 73 NIBP 171/81 NIBP BP-Mean 111 Respiration from ECG 12 SpO2 100 I&O: 10/27/18 10/28/18 10/29/18 06:59 06:59 06:59 Intake Total 1969 1060 150 Output Total 1900 0 Balance 69 1060 150 Result Diagrams: 10/27/18 06:09 10/27/18 06:09 Additional Labs: Accuchecks 10/28/18 10/27/18 10/27/18 06:08 20:08 16:34 POC Glucose 109 157 H 163 H Phys Exam - Physical Examination HEENT: PERRLA Respiratory: no wheezing, no rales, no rhonchi, clear to auscultation bilateral Cardiovascular: RRR, no significant murmur, no rub Gastrointestinal: soft, non-tender, no distention, positive bowel sounds Musculoskeletal: pulses present, edema present trace pedal edema, mild edema on the right elbow Neurological: non-focal, moves all 4 limbs Dx/Plan (1) Subdural hematoma Code(s): S06.5X9A - TRAUM SUBDR HEM W LOC OF UNSP DURATION, INIT Status: Acute Comment: Neurosurg has plans for future drainage. Giving time to allow brain to be less reactive after seizure and the clot to liquify Doing very well now. May change. (2) Closed fracture of ulna, proximal, right Code(s): S52.001A - UNSP FRACTURE OF UPPER END OF RIGHT ULNA, INIT FOR CLOS FX Status: Acute (3) Seizure Code(s): R56.9 - UNSPECIFIED CONVULSIONS Status: Acute Comment: Post subdural. Keppra (4) ESRD (end stage renal disease) on dialysis Code(s): N18.6 - END STAGE RENAL DISEASE; Z99.2 - DEPENDENCE ON RENAL DIALYSIS Status: Chronic Comment: Followed by Neprhology. On scheduled hemodialysis. (5) HTN (hypertension) Code(s): I10 - ESSENTIAL (PRIMARY) HYPERTENSION Status: Chronic Comment: blood pressure is controlled. (6) Metabolic encephalopathy Code(s): G93.41 - METABOLIC ENCEPHALOPATHY Status: Acute - Plan * Subdural hematoma- treated conservatively- he is clinically table, and resultant metabolic emcephalopathy is improving * Seizure- none reported recently- continue on Keppra. * HTN- blood pressure is stable * ESRD- continue dialysis * Awaiting discharge placement
--- NOTE | 2018-10-28 11:57 | PRG ---
DATE OF SERVICE: 10/28/2018 SUBJECTIVE: Patient was seen and examined at bedside and overnight events noted. Patient denies any shortness of breath or chest pain or palpitation. No history of nausea or vomiting or diarrhea or fever or chills or cramps. OBJECTIVE: GENERAL: This is a well-built male, in no apparent distress. VITAL SIGNS: Temperature 98.3, pulse 80, respiratory rate 18, blood pressure 138/80. HEENT: Atraumatic, normocephalic. Oral mucosa is moist NECK: Supple. CARDIOVASCULAR: S1, S2 heard. Rate and rhythm regular. RESPIRATORY: Clear to auscultation. GASTROINTESTINAL: Abdomen is soft. MUSCULOSKELETAL: No tenderness. No edema. DERMATOLOGIC: No skin rash. NEUROLOGIC: Alert and awake and oriented X3. No focal neurologic deficits. Moving all the extremities. PSYCHIATRIC: Mood and affect normal. LABORATORY DATA: No labs done today. ASSESSMENT AND PLAN: 1. End-stage renal disease. Continue on dialysis. 2. Hypertension. 3. Anemia. PLAN: We will continue on dialysis as tolerated. Job ID: [id number]
[2018-10-28 12:08] VITALS: TEMP 97.8
[2018-10-28] MEDS: Acetaminophen 325 MG TAB PO PRN (13:29)
[2018-10-28 15:33] VITALS: BP 165/83
[2018-10-28] MEDS: HumaLOG 300 UNITS/3 ML VIAL SC PRN (16:09)
--- NOTE | 2018-10-29 05:34 | DIS ---
DATE OF ADMISSION: 10/12/2018 DATE OF DISCHARGE: 10/28/2018 PRIMARY CARE PHYSICIAN: Currently does not have a primary care physician. DISCHARGE DISPOSITION: To inpatient rehab. DISCHARGE DIAGNOSES: 1. Traumatic subdural hematoma. 2. 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 3. Metabolic encephalopathy secondary to traumatic subdural hematoma. 4. End-stage renal disease, on hemodialysis. 5. Hypertension. 6. Right proximal ulnar fracture. 7. Dyslipidemia. DISCHARGE MEDICATIONS: Include: 1. Ambien 5 mg at bedtime. 2. Geodon 20 mg q.6 as needed. 3. Reglan 10 mg t.i.d. 4. Melatonin 6 mg at bedtime. 5. Keppra 500 mg twice daily. 6. Celexa 20 mg daily. 7. Ropinirole 2 mg at bedtime. 8. Protonix 40 mg twice daily. 9. Zofran 4 mg q.12. 10. Gabapentin 100 mg daily. 11. Desloratadine 5 mg daily as needed. 12. Atorvastatin 20 mg daily. PROCEDURES DONE DURING THE ADMISSION: The patient had a CT scan of the brain, in which there was a stable left-sided subdural hematoma with stable 3 mm right midline shift. He had an EEG showing normal awake EEG. This was done on 10/16. He had a repeat EEG on 10/18 showing abnormal EEG due to some sharply contoured slowing seen in the left frontotemporal area. There was no active seizures at this time, but it could be consistent with a seizure disorder. CODE STATUS: Full code. ALLERGIES: NO KNOWN DRUG ALLERGIES. HOSPITAL COURSE: Mr. Oliveros is a pleasant 73-year-old gentleman, who suffered a fall resulting in a left subdural hematoma. He was admitted to the neurosurgery service as a result. He was evaluated, and it was felt that conservative measures were the best treatment at this time. No surgery was planned. During the course of his admission, several days into his hospital stay, he suffered a seizure. He was started on IV Keppra for this. He had a short stay in the ICU as a result of the seizure activity. He was able to be transitioned out of the ICU. He had some evidence of confusion and agitation, which was related to metabolic encephalopathy. This was likely as a result of the subdural hematoma. Over the course of the next few days, he began to improve. Some of the metabolic encephalopathy could be due to severe sleep deprivation, which was corrected during the last few days of his hospital stay. During this time, he continued on his maintenance hemodialysis, and then once clinically stable, he has been able to be discharged to a rehabilitation unit. Job ID: [id number]
== END 2018-10-28 18:02 | DRG 85 ==
LOC: ERS 19:07 → CCU 20:10 → 2SE 10-13 14:44 → CCU 10-16 15:26 → 2SE 10-19 15:08
PROVIDERS: ADMIT Hospitalist; ATTEND Hospitalist
PROC: 5A1D70Z Performance of Urinary Filtration, Intermittent, Less than 6 Hours Per Day (ICD-10-PCS; principal; 2018-10-14)
PROC: 5A1D70Z Performance of Urinary Filtration, Intermittent, Less than 6 Hours Per Day (ICD-10-PCS; 2018-10-15)
PROC: 5A1D70Z Performance of Urinary Filtration, Intermittent, Less than 6 Hours Per Day (ICD-10-PCS; 2018-10-17)
PROC: 5A1D70Z Performance of Urinary Filtration, Intermittent, Less than 6 Hours Per Day (ICD-10-PCS; 2018-10-19)
PROC: 5A1D70Z Performance of Urinary Filtration, Intermittent, Less than 6 Hours Per Day (ICD-10-PCS; 2018-10-22)
PROC: 5A1D70Z Performance of Urinary Filtration, Intermittent, Less than 6 Hours Per Day (ICD-10-PCS; 2018-10-24)
PROC: 5A1D70Z Performance of Urinary Filtration, Intermittent, Less than 6 Hours Per Day (ICD-10-PCS; 2018-10-25)
DX: S06.5X0A Traumatic subdural hemorrhage without loss of consciousness, initial encounter (principal); N18.6 End stage renal disease; G93.41 Metabolic encephalopathy; I12.0 Hypertensive chronic kidney disease with stage 5 chronic kidney disease or end stage renal disease; E87.2 Acidosis; R47.01 Aphasia; D63.1 Anemia in chronic kidney disease; E87.5 Hyperkalemia; R56.9 Unspecified convulsions; E78.5 Hyperlipidemia, unspecified; S80.02XA Contusion of left knee, initial encounter; S52.001A Unspecified fracture of upper end of right ulna, initial encounter for closed fracture; Z99.2 Dependence on renal dialysis; Z95.1 Presence of aortocoronary bypass graft; Z79.899 Other long term (current) drug therapy; W18.30XA Fall on same level, unspecified, initial encounter
CPT/HCPCS: 36415; 36416; 70450; 71045; 80048; 80053; 80069; 81003; 81015; 82140; 82533; 82805; 83605; 84132; 84436; 84443; 85025; 85610; 85730; 87086; 87324; 87449; 90935; 93005; 93010; 94640; 95816; 95819; 99285; A4216; G0257; G0390; G8978-GP-CJ; G8978-GP-CL; G8979-GP-CJ; G8980-GP-CJ; G8987-GO-CJ; G8987-GO-CL; G8988-GO-CI; G8988-GO-CJ; G8996-GN-CI; G8997-GN-CI; J0131; J1630; J1644; J1953; J2060; J2405; J2550; J3486; J7050; Q0162

== ENCOUNTER 2018-10-29 14:04 | Inpatient (IN) | payer MEDICARE ==
[2018-10-29] MEDS ORDERED: niCARdipine 20MG In NaCl 20 MG/200 ML BAG ONE (14:49)
[2018-10-29] MEDS ORDERED: Docusate 100 MG CAP PO PRN (15:44)
[2018-10-29] MEDS ORDERED: Labetalol HCl 100 MG/20 ML VIAL SLOW IVP PRN (15:44)
[2018-10-29] MEDS ORDERED: Mag-Al 1200 mg/1200 mg/30 ML UDCUP PO PRN (15:44)
--- NOTE | 2018-10-29 20:13 | HP ---
HISTORY OF PRESENT ILLNESS: Mr. Oliveros is a 73-year-old gentleman, who presents to the emergency department at [facility] via a way of transfer from [facility] after having become combative and altered during dialysis this morning. Subsequently, he had a CT scan performed in the Emergency Department at [facility] [facility] that revealed a large left cerebral convexity subdural hematoma. This is actually a known hemorrhage as he was admitted to [facility] for 2 weeks and then sent to inpatient rehab, where he was until this morning upon representation. Compared to his most recent study, which was on October 24, this does appear to be enlarged in terms of depth and he does have a few more millimeters of midline shift. At bedside, he is drowsy, but does fully awaken and is appropriate. GCS is 15. PAST MEDICAL HISTORY: Significant for end-stage renal disease, diabetes, hypertension, and coronary arterial disease. PAST SURGICAL HISTORY: CABG, cholecystectomy, and AV fistula placement. ALLERGIES: NONE. FAMILY HISTORY: Noncontributory. PHYSICAL EXAMINATION: The patient is alert and oriented x3. He knows the date, location, his date of , and circumstances. Pupils are equal, round, and reactive to light. Extraocular movements are intact. Bilateral upper and lower extremity movements are intact. 5/5 strength in all movements. No sensory disturbance that I can discern. 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 PLAN: I discussed with the patient that we will admit him to the Stroke Unit, keep him there overnight and at midnight, hold him n.p.o. status with plans to perform left-sided melody hole and subdural evacuation tomorrow. I explained the risks, benefits, and alternatives to the patient and family; all are in understanding and will likely proceed tomorrow. Job ID: [id number]
[2018-10-29] MEDS ORDERED: Ondansetron PF 4 MG/2 ML Vial ONE (21:34)
[2018-10-29] MEDS ORDERED: Milk Of Magnesia 30 ML UDCUP ONE (21:34)
[2018-10-29] MEDS: Famotidine/PF 20 mg/2ml Vial SLOW IVP SCH (23:41)
[2018-10-29] MEDS: Sodium Chloride 0.9% 1,000 ML IV SCH (23:42)
[2018-10-29] MEDS: Acetaminophen 325 MG TAB PO PRN (23:42)
[2018-10-29] MEDS: Ondansetron PF 4 MG/2 ML Vial IVP PRN (23:43)
[2018-10-30] MEDS ORDERED: Loperamide HCl 2 MG CAP PO PRN (00:55)
[2018-10-30] MEDS ORDERED: Loperamide HCl 2 MG CAP PO SCH (01:00)
[2018-10-30] MEDS: Nicotine 7 MG PATCH TD SCH ×2 (03:56→20:22)
[2018-10-30] MEDS ORDERED: Prevnar 13-Val Conj/PF 0.5 ML SYRINGE IM ONE (04:45)
[2018-10-30 06:04] LABS: #Basophils 0.1 thou/uL (0.0-0.2); #Eosinphils 0.2 thou/uL (0.0-0.7); #Lymphocytes 2.2 thou/uL (1.20-3.40); #Monocytes 0.8 thou/uL (0.11-0.59); %Basophils 0.6 % (0.0-1.0); %Lymphocytes 24.1 % (21.0-51.0); %Monocytes 8.8 % (0.0-10.0); %Neutrophils 64.5 % (42.0-75.0); Hemoglobin 12.5 g/dL (14.0-18.0); Mean Corpuscular HGB CONC 31.9 g/dL (32.0-36.0); Mean Corpuscular Hemoglobin 31.5 pg (27.0-31.0); Mean Corpuscular Volume 98.7 fL (78.0-98.0); Mean Platelet Volume 6.9 fL (7.4-10.4); Platelet Count 329 thou/uL (130-400); RBC Distribution Width 15.6 % (11.5-14.5); Red Blood Cell (RBC) Count 3.98 mill/uL (4.70-6.10); White Blood Cell (WBC) Count 9.3 thou/uL (4.8-10.8)
[2018-10-30 06:20] LABS: Anion Gap 23 mmol/L (10-20); BUN (Urea Nitrogen) 37 mg/dL (8.4-25.7); Calc. Creatinine Clearance 14 mL/min (70-130); Calcium 9.4 mg/dL (7.8-10.44); Carbon Dioxide 20 mmol/L (23-31); Chloride 96 mmol/L (98-107); Estimated GFR-MDRD 8; Glucose 86 mg/dL (83-110); Potassium 3.9 mmol/L (3.5-5.1); Sodium 135 mmol/L (136-145)
[2018-10-30] MEDS ORDERED: Acetaminophen/Codeine 30-300mg Tablet PO PRN (07:25)
[2018-10-30] MEDS ORDERED: Non-Formulary Item 1 EACH (Ondansetron Hcl 4 MG) PO SCH (07:30)
[2018-10-30] MEDS ORDERED: Loratadine 10 MG TAB PO PRN (07:45)
[2018-10-30] MEDS ORDERED: Ondansetron ODT 4 MG TAB PO SCH (08:00)
[2018-10-30] MEDS ORDERED: cloNIDine 0.3mg/24 Hour PATCH TD SCH (09:00)
--- NOTE | 2018-10-30 09:36 | PRG ---
DATE OF SERVICE: 10/30/2018 SUBJECTIVE: Mr. Oliveros is a 73-year-old gentleman, previously evaluated in the hospital for subdural hematoma. He was subsequently discharged home recently, but bounced back yesterday with increased confusion and gait unsteadiness. He had a repeat CT examination performed at [facility] and subsequently sent here, which reveals the presence of persistent slightly increasing size of subdural hematoma, present predominantly over the left cerebral convexity. This is a mixed density with a predominant subacute to chronic components. There is associated midline shift which has worsened since the scan performed 5 to 6 days ago. PLAN: As I discussed with him, will be to move forward with a bur hole drainage of the subdural hematoma. I talked to him about his imaging, his diagnosis, and the surgical plan, as well as the risk and benefits. The plan will be, ICU admission afterwards with transition of the floor and to home thereafter. He does undergo dialysis three times a week and will need to continue that over the duration of his stay here. Job ID: [id number]
[2018-10-30] MEDS: Citalopram 20 MG TAB PO SCH (09:41)
[2018-10-30] MEDS: Atorvastatin Calcium 20 MG TAB PO SCH (09:41)
[2018-10-30] MEDS: Gabapentin 100 MG CAP PO SCH (09:41)
[2018-10-30] MEDS: levETIRAcetam 500 MG TAB PO SCH ×2 (09:41→20:24)
[2018-10-30] MEDS: Metoprolol Tartrate 25 MG TAB PO SCH ×2 (09:42→20:24)
[2018-10-30] MEDS: Lisinopril 20 MG TAB PO SCH (09:42)
[2018-10-30] MEDS: Metoclopramide HCl 10 MG TAB PO SCH ×3 (09:42→20:24)
[2018-10-30] MEDS: Famotidine/PF 20 mg/2ml Vial SLOW IVP SCH ×2 (09:42→20:22)
[2018-10-30] MEDS ORDERED: Lidocaine 0.5%/Epinephrine 1:200,000 50 ml Vial ONE (10:51)
[2018-10-30] MEDS ORDERED: Thrombin 5000 UNITS/5 ML VIAL ONE (10:51)
[2018-10-30] MEDS ORDERED: CEFAZOLIN 2 GM/50 ML BAG ONE (11:21)
[2018-10-30] MEDS ORDERED: Fentanyl 100 MCG/2 ML VIAL ONE ×3 (11:37→16:15)
--- NOTE | 2018-10-30 14:04 | OP ---
DATE OF PROCEDURE: 10/30/2018 CLINICAL ADMINISTRATOR: Tristan Galvan PA-C INDICATION: To prevent neurologic decline. DIAGNOSIS: Left [id number] on acute subdural hematoma over the left cerebral convexity. PROCEDURE PERFORMED: Left frontal melody hole with evacuation of subdural hematoma. ANESTHESIA: General. DESCRIPTION OF PROCEDURE: The patient was brought into the operating room, placed under general anesthesia. His head was turned to the right for optimal exposure of the left frontal bone. A small linear incision was planned lateral to the midpupillary line. This area was prepped and draped and infiltrated with Marcaine. Following a preoperative pause, the incision was created. Soft tissues were swept away from midline. A single melody hole was placed. A cruciate incision was placed within the dura, where there was immediate egress of dark fluid consistent with chronic blood product. This was irrigated until it cleared. A red rubber tube was placed through a separate puncture site within the subdural space. The wound was closed in anatomic layers. The procedure came to an end without complication. Job ID: [id number]
--- NOTE | 2018-10-30 15:53 | EKG ---
Test Reason : Blood Pressure : / mmHG Vent. Rate : 081 BPM Atrial Rate : 081 BPM P-R Int : 142 ms QRS Dur : 096 ms QT Int : 418 ms P-R-T Axes : 068 053 113 degrees QTc Int : 485 ms Sinus rhythm with occasional Premature ventricular complexes Possible Left atrial enlargement Septal infarct , age undetermined Abnormal ECG Confirmed by CHRISTINE KRISHNAN ([id number]), food editor GARLAND GRACIA ([id number]) on 10/30/2018 3:53:18 PM Referred By: Confirmed By:CHRISTINE KRISHNAN
[2018-10-30] MEDS: Sodium Chloride 0.9% 1,000 ML IV SCH ×2 (18:16→20:27)
[2018-10-30] MEDS: Morphine 4 MG/ML VIAL SLOW IVP PRN (18:24)
[2018-10-30] MEDS ORDERED: PROPOFOL 200 MG/20 ML VIAL ONE (18:47)
[2018-10-30] MEDS: CEFAZOLIN 2 GM/50 ML BAG IVPB SCH (20:21)
[2018-10-30] MEDS: Ondansetron ODT 4 MG TAB PO SCH (20:25)
[2018-10-30] MEDS: rOPINIRole HCl 1 MG TAB PO SCH (20:41)
[2018-10-30] MEDS: Acetaminophen 325 MG TAB PO PRN (21:45)
[2018-10-31] MEDS: Zolpidem Tartrate 5 MG TAB PO PRN ×2 (00:03→22:23)
--- NOTE | 2018-10-31 02:36 | CON ---
DATE OF CONSULTATION: REQUESTING PHYSICIAN: Neurosurgery service. REASON FOR CONSULTATION: Need for maintenance hemodialysis. IMPRESSION: 1. End-stage renal disease, hemodialysis dependent on Sunday, , Sunday schedule. 2. Worsening subdural hematoma. 3. Mental status change related to worsening subdural hematoma. PLAN: 1. The patient to be placed back on his regular schedule of Sunday, , and Sunday; therefore, the patient to be dialyzed tomorrow. There is no emergent indication for dialysis today. 2. We will plan to avoid anticoagulants during dialysis in this patient. HISTORY OF PRESENT ILLNESS: This is a 73-year-old gentleman with a known subarachnoid subdural hemorrhage/subdural hematoma, who was at dialysis today and noted with mental status change, for which the patient was sent to the hospital. Imaging studies did review enlarged subdural hematoma necessitating the transfer towards here. The patient has undergone evacuation of the subdural hematoma. The need for maintenance hemodialysis necessitated this consultation. PAST MEDICAL HISTORY: Significant for end-stage renal disease, type 2 diabetes, hypertension, and coronary artery disease. ALLERGIES: NO KNOWN DRUG ALLERGY. FAMILY HISTORY: Not significantly related to presenting illness. SOCIAL HISTORY: No illicit drug use. No alcohol. REVIEW OF SYSTEMS: As documented in the body of history. All the other systems were reviewed and were found not to be significantly related to presenting illness. PHYSICAL EXAMINATION: GENERAL: The patient was found not to be in any obvious respiratory distress. VITAL SIGNS: Noted with the following vital signs; afebrile, temperature 97.7, O2 saturation 100% on room air with blood pressure 167/49, respiratory rate of 19. HEENT EXAMINATION: Unremarkable. CARDIOVASCULAR: First and second heart sounds were heard. RESPIRATORY: Clear to auscultation. DIGESTIVE SYSTEM: Revealed a benign abdomen. EXTREMITIES: No peripheral edema. SKIN EXAMINATION: No new gross rash. LYMPHATICS: No peripheral lymphadenopathy. SUMMARY: A 73-year-old gentleman with end-stage renal disease, hemodialysis dependent, who presented here with altered mental status. Thank you for this consultation. We will follow with you. Job ID: [id number]
[2018-10-31] MEDS: Acetaminophen 325 MG TAB PO PRN ×2 (03:54→18:08)
[2018-10-31] MEDS: CEFAZOLIN 2 GM/50 ML BAG IVPB SCH (03:57)
[2018-10-31] MEDS: levETIRAcetam 500 MG TAB PO SCH ×2 (09:16→20:21)
[2018-10-31] MEDS: Gabapentin 100 MG CAP PO SCH (09:17)
[2018-10-31] MEDS: Citalopram 20 MG TAB PO SCH (09:19)
[2018-10-31] MEDS: Metoclopramide HCl 10 MG TAB PO SCH ×3 (09:19→20:21)
[2018-10-31] MEDS: Lisinopril 20 MG TAB PO SCH (09:19)
[2018-10-31] MEDS: Famotidine/PF 20 mg/2ml Vial SLOW IVP SCH ×2 (09:20→20:22)
[2018-10-31] MEDS: Metoprolol Tartrate 25 MG TAB PO SCH ×2 (09:20→21:44)
[2018-10-31] MEDS: Ondansetron ODT 4 MG TAB PO SCH ×2 (09:20→19:44)
[2018-10-31] MEDS: Atorvastatin Calcium 20 MG TAB PO SCH (09:20)
[2018-10-31] MEDS: Sodium Chloride 0.9% 1,000 ML IV SCH ×2 (10:57→21:44)
[2018-10-31] MEDS ORDERED: CEFAZOLIN/Water 2 GM/20 ML SYRINGE SLOW IVP SCH (12:00)
[2018-10-31] MEDS ORDERED: CEFAZOLIN 2 GM/50 ML-DEXTROSE 2 GM in Premix Bag 1 BAG IVPB SCH (12:00)
--- NOTE | 2018-10-31 17:50 | PRG ---
DATE OF SERVICE: 10/31/2018 SUBJECTIVE: The patient is seen and examined. He is undergoing dialysis in ICU, doing better, noted with the following vital signs. OBJECTIVE: VITAL SIGNS: Blood pressure 139/59, pulse 56, respiratory rate of 19, and O2 saturation of 100%. HEENT: Unremarkable. CARDIOVASCULAR SYSTEM: First and second heart sounds were heard. RESPIRATORY SYSTEM: Clear to auscultation. DIGESTIVE SYSTEM: Revealed a benign abdomen. EXTREMITIES: No peripheral edema. SKIN: No new gross rash. LYMPHATICS: No peripheral lymphadenopathy. IMPRESSION: 1. End-stage renal disease, on hemodialysis, being dialyzed today in accordance with the schedule. 2. Subdural hematoma, status post evacuation. PLAN: 1. We will continue with current schedule of hemodialysis without any heparin. 2. Further management to be dependent on the clinical course. Job ID: [id number]
[2018-10-31] MEDS: Nicotine 7 MG PATCH TD SCH (19:45)
[2018-10-31] MEDS: Morphine 4 MG/ML VIAL SLOW IVP PRN (19:50)
[2018-10-31] MEDS: rOPINIRole HCl 1 MG TAB PO SCH (20:25)
[2018-10-31] MEDS ORDERED: Dextrose 5% in Water 1,000 ML IV PRN (20:27)
[2018-10-31] MEDS ORDERED: HumaLOG 300 UNITS/3 ML VIAL SC PRN ×2 (20:27)
[2018-10-31] MEDS ORDERED: Dextrose 50% Abboject 50 ML SYRINGE SLOW IVP PRN (20:27)
[2018-10-31] MEDS ORDERED: Famotidine 20 MG TAB PO SCH (21:00)
--- NOTE | 2018-10-31 23:48 | PRG ---
DATE OF SERVICE: 10/31/2018 TIME: Encounter occurred at 12:30. SUBJECTIVE: Mr. Oliveros is postop day #1 following subdural hematoma evacuation and is doing quite well. I saw him earlier this morning after he had 120 mL out of his RAMESH drain overnight, so we elected to give it 3 more hours after draining the bag to see if he had 20 or less milliliters, which he has only 10, so we will go ahead and remove the tube. He is more alert, more interactive and overall appears much better than yesterday. We will discontinue his drain and then transfer him to the floor. We will also get PT and OT involved for evaluation of mobility and physical function for potential discharge tomorrow. Job ID: [id number]
[2018-10-31] MEDS: Ondansetron PF 4 MG/2 ML Vial IVP PRN (23:51)
[2018-11-01] MEDS: Acetaminophen 325 MG TAB PO PRN (02:37)
--- NOTE | 2018-11-01 03:07 | CON ---
DATE OF CONSULTATION: 10/31/2018 PRIMARY CARE PROVIDER: Dr. Calvo of [place], [place]. PRIMARY SERVICE ATTENDING: Momo Lynch MD with Neurosurgical Service. REASON FOR CONSULTATION: Diabetic and hypertensive management. HISTORY OF PRESENT ILLNESS: This is a 73-year-old male, who presented to [facility] after apparently becoming combative with altered mentation during dialysis on 10/29/2018. The patient's history is significant for a recent left-sided traumatic subdural hematoma, initially managed over approximately 15-day period at [facility] conservatively without surgical intervention. The patient was recently discharged to inpatient rehabilitation and apparently was undergoing his regular hemodialysis session when he became combative and altered. CT imaging done in [place], [place] showed a large left-sided subdural hematoma with apparent enlargement with several millimeters more midline shift. The patient was admitted per the Neurosurgical Service, undergoing melody hole placement with evacuation of the subdural hematoma over the left cerebral convexity on 10/30/2018. The patient was then monitored in the critical care unit and had been noted with bradycardia as well as labile glucose values. The patient currently states he feels much better without significant headache, confusion, chest pain, shortness of breath, or fever. The patient completed his maintenance hemodialysis session without complication. PAST MEDICAL HISTORY: 1. Acute on chronic subdural hematoma, traumatic with initial conservative management. 2. Metabolic encephalopathy secondary to subdural hematoma. 3. 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 4. End-stage renal disease, on hemodialysis. 5. Hypertension. 6. Right proximal ulnar fracture. 7. Dyslipidemia. PAST SURGICAL HISTORY: 1. Status post coronary artery bypass grafting. 2. Status post cholecystectomy. 3. Status post AV fistula placement. 4. Status post melody hole to the left temporoparietal region. CURRENT MEDICATIONS: 1. Tylenol No. 3, 300/30 mg 1 tablet p.o. q.6 hours p.r.n. 2. Lipitor 20 mg p.o. daily. 3. Clonidine patch 0.3 mg per 24 hour transdermally q.7 days. 4. Desloratadine 5 mg p.o. daily. 5. Gabapentin 100 mg p.o. daily. 6. Lisinopril 20 mg p.o. daily. 7. Metoprolol tartrate 25 mg p.o. b.i.d. 8. Zofran 4 mg p.o. q.12 hours p.r.n. 9. Protonix 40 mg p.o. b.i.d. 10. Requip 2 mg p.o. at bedtime. 11. Ambien 10 mg p.o. at bedtime p.r.n. 12. Celexa 20 mg p.o. daily. 13. Keppra 500 mg p.o. b.i.d. 14. Reglan 10 mg p.o. t.i.d. ALLERGIES: NO KNOWN DRUG ALLERGIES. FAMILY HISTORY: Positive for hypertension and coronary artery disease. SOCIAL HISTORY: The patient resides in [place], [place]. Retired. . No current alcohol or illicit drug use. Positive tobacco use. REVIEW OF SYSTEMS: CONSTITUTIONAL: Negative for weight loss or gain, ability to conduct usual activities. SKIN: Negative for rash, itching. EYES: Negative for double vision, pain. ENT/MOUTH: Negative for nose bleeding, neck stiffness, pain, tenderness. CARDIOVASCULAR: Negative for palpitations, dyspnea on exertion, orthopnea. RESPIRATORY: Negative for shortness of breath, wheezing, cough, hemoptysis, fever or night sweats. GASTROINTESTINAL: Negative for poor appetite, abdominal pain, heartburn, nausea, vomiting, constipation, or diarrhea. GENITOURINARY: Negative for urgency, frequency, dysuria, nocturia. MUSCULOSKELETAL: Negative for pain, swelling. NEUROLOGIC/PSYCHIATRIC: Negative for anxiety, depression. ALLERGY/IMMUNOLOGIC: Negative for skin rash, bleeding tendency. Otherwise negative except as stated per HPI. PHYSICAL EXAMINATION: VITAL SIGNS: Currently; blood pressure 134/50, pulse 65, respiratory rate 20, temperature 97.6 degrees Fahrenheit, O2 saturation 100% on room air. GENERAL APPEARANCE: This is a 73-year-old male, alert and oriented x3, pleasant, responsive, in no acute distress. HEENT: Pupils are equal, round, and reactive to light and accommodation. Extraocular muscles are intact. No scleral icterus. No conjunctival injection. Nares patent. OP is clear. NECK: Supple. No cervical adenopathy. No thyromegaly. No carotid bruits. No JVD appreciated. Cervical spine with full active and passive range of motion. No meningeal signs appreciated. CHEST: Lungs are clear to auscultation bilaterally. CARDIOVASCULAR: S1 and S2 without noted murmur, rub, or gallop. ABDOMEN: Obese, soft, nontender, and nondistended. Bowel sounds are positive in all 4 quadrants. No hepatosplenomegaly. No abdominal bruits. No rebound or guarding appreciated. EXTREMITIES: Warm and dry with fair turgor. Mild edema of the lower extremities. Pulses palpable distally at the dorsalis pedis, posterior tibial, and popliteal arteries bilaterally. Capillary refill less than 2 seconds. NEUROLOGIC: Cranial nerves 2 through 12 are grossly intact. No focal or lateralizing signs appreciated. PERTINENT LAB AND X-RAY FINDINGS: Sodium 135, potassium 3.9, chloride 96, CO2 of 20, BUN 37, creatinine 6.92, estimated GFR of 8, calcium 9.4. CBC showed a white blood cell count of 9.3, hemoglobin 12.5, hematocrit 39, platelet count 329 with normal differential. EKG dated 10/29/2018, by my interpretation shows sinus mechanism with heart rates in the 80s. Normal R-wave progression noted in the precordial leads. Normal axis. Occasional PVC noted. No acute ST-T wave changes appreciated. ASSESSMENT AND PLAN: 1. Acute on chronic subdural hematoma, status post melody hole with evacuation of hematoma. The patient followed by the Neurosurgical service postop day #1. Continue general postoperative care. Pain control as needed. 2. Sinus bradycardia, mild. We will decrease metoprolol to 12.5 mg b.i.d. Continue telemetry monitoring. The patient may need additional titration of his clonidine if symptomatic sinus bradycardia develops. 3. Diabetes mellitus type 2. Insulin sliding scale for reflexive coverage. Serial Accu-Cheks a.c. and at bedtime. 4. Metabolic encephalopathy, secondary to #1, improved after evacuation of subdural hematoma. General supportive management. 5. Seizures secondary to #1, stable currently. Continue Keppra 500 mg p.o. b.i.d. 6. Hypertension, stable currently. Continue serial blood pressure monitoring. Decrease metoprolol to 12.5 mg b.i.d. 7. End-stage renal disease with hemodialysis. Continue hemodialysis at the direction of Nephrology Service. No current evidence to suggest acute volume overload. 8. Prophylaxis. Sequential compression devices while in bed. Protonix 40 mg p.o. b.i.d. 9. Code status is full. Surrogate medical decision maker is the patient's spouse. 10. We will continue to follow with primary service. Job ID: [id number]
[2018-11-01 06:24] VITALS: BMI 29.4
[2018-11-01 06:40] LABS: Hemoglobin A1c 5.6 % (4.0-6.0)
[2018-11-01] MEDS: Atorvastatin Calcium 20 MG TAB PO SCH (09:04)
[2018-11-01] MEDS: Ondansetron ODT 4 MG TAB PO SCH (09:06)
[2018-11-01] MEDS: Metoclopramide HCl 10 MG TAB PO SCH (09:06)
[2018-11-01] MEDS: Gabapentin 100 MG CAP PO SCH (09:06)
[2018-11-01] MEDS: levETIRAcetam 500 MG TAB PO SCH (09:06)
[2018-11-01] MEDS: Metoprolol Tartrate 25 MG TAB PO SCH (09:06)
[2018-11-01] MEDS: Lisinopril 20 MG TAB PO SCH (09:06)
[2018-11-01] MEDS: Citalopram 20 MG TAB PO SCH (09:06)
--- NOTE | 2018-11-01 10:35 | PRG ---
DATE OF SERVICE: 11/01/2018 SUBJECTIVE: Mr. Oliveros is now 2 days status post melody hole evacuation of subdural hematoma. He is on the floor now and recovering as expected. His incision is clean, dry, and intact. He is alert and oriented and interactive. He is highly motivated to go home today. I believe that it will be safe to do so provided he is able to ambulate out of his room without significant concern for fall. We will engage Physical Therapy for that purpose and then we will move toward dismissal as early as this afternoon. Job ID: [id number]
[2018-11-01 11:47] VITALS: BP 152/82; TEMP 97.8
== END 2018-11-01 15:26 | disposition home or self-care (01) | DRG 25 ==
LOC: ERS 14:04 → ERHOLD 19:18 → 2SE 22:00 → CCU 10-30 13:20 → SJJU 10-31 21:27
PROVIDERS: ADMIT Neurological Surgery; ATTEND Neurological Surgery
PROC: 009430Z Drainage of Intracranial Subdural Space with Drainage Device, Percutaneous Approach (ICD-10-PCS; principal; 2018-10-30)
PROC: 5A1D70Z Performance of Urinary Filtration, Intermittent, Less than 6 Hours Per Day (ICD-10-PCS; 2018-10-31)
DX: I62.01 Nontraumatic acute subdural hemorrhage (principal); N18.6 End stage renal disease; G93.41 Metabolic encephalopathy; I12.0 Hypertensive chronic kidney disease with stage 5 chronic kidney disease or end stage renal disease; E11.22 Type 2 diabetes mellitus with diabetic chronic kidney disease; Z99.2 Dependence on renal dialysis; I25.10 Atherosclerotic heart disease of native coronary artery without angina pectoris; R00.1 Bradycardia, unspecified; Z95.1 Presence of aortocoronary bypass graft; Z79.811 Long term (current) use of aromatase inhibitors; I62.03 Nontraumatic chronic subdural hemorrhage
CPT/HCPCS: 36415; 36416; 80048; 83036; 85025; 90471; 90670; 93005; 96365; 96366; 96374; 96375; G0009; G8978-GP-CM; G8979-GP-CK; G8987-GO-CK; G8988-GO-CI; J2001; J2270; J2405; J2704; J3010; J3490; Q0162; S0028